=== PATIENT | female | born 1985 | race Caucasian/White ===

== ENCOUNTER → 2017-11-11 | Outpatient (CLI) | payer BC ==
[~2017-11-11] MED LIST: CLR10 PO; DOCO200C2; PRENCAP38 PO
== END | disposition home or self-care (01) ==
LOC: C.LABSPEC 17:41
PROVIDERS: ATTEND Obstetrics & Gynecology
DX: Z34.01 Encounter for supervision of normal first pregnancy, first trimester (principal)

== ENCOUNTER → 2017-11-18 | Outpatient (CLI) | payer OTHER ==
[2017-11-18 16:36] LABS: BASO % 0.4 %; BASO ABS # 0.04 K/uL (0-0.2); EOS ABS # 0.11 K/uL (0-0.5); HEMATOCRIT 36.1 % (37-47); HEMOGLOBIN 12.4 g/dL (12.0-16.0); IG# 0.04 K/uL (0.00-0.02); LYMPH ABS # 2.29 K/uL (1.2-3.4); MEAN CELL VOLUME 95.3 fL (80-100); MEAN CORPUSCULAR HEMOGLOBIN 32.7 pg (25-34); MEAN CORPUSCULAR HGB CONC 34.3 g/dl (32-36); MEAN PLATELET VOLUME 9.5 fL (7.4-10.4); MONO % 7.7 %; MONO ABS # 0.84 K/uL (0.11-0.59); NEUT % 69.5 %; NEUT ABS # 7.61 K/uL (1.4-6.5); PLATELET COUNT 303 K/uL (130-400); RED CELL DISTRIBUTION WIDTH SD 41.2 fL (36.4-46.3); WHITE BLOOD COUNT 10.93 K/uL (4.8-10.8)
== END | disposition home or self-care (01) ==
LOC: C.LAB1850 16:02
PROVIDERS: ATTEND Obstetrics & Gynecology
DX: Z34.01 Encounter for supervision of normal first pregnancy, first trimester (principal)

== ENCOUNTER → 2018-01-13 | Outpatient (CLI) | payer OTHER | END | disposition home or self-care (01) | LOC: C.LAB1850 16:13 | PROVIDERS: ATTEND Obstetrics & Gynecology | DX: Z34.02 Encounter for supervision of normal first pregnancy, second trimester (principal) ==

== ENCOUNTER → 2018-02-03 | Outpatient (CLI) | payer OTHER | END | disposition home or self-care (01) | LOC: C.LAB1850 09:22 | PROVIDERS: ATTEND Obstetrics & Gynecology | DX: O28.1 Abnormal biochemical finding on antenatal screening of mother (principal) ==

== ENCOUNTER → 2018-04-03 | Outpatient (CLI) | payer OTHER ==
[2018-04-03 12:39] LABS: HEMATOCRIT 37.7 % (37-47); HEMOGLOBIN 12.7 g/dL (12.0-16.0)
== END | disposition home or self-care (01) ==
LOC: C.LAB1850 10:44
PROVIDERS: ATTEND Obstetrics & Gynecology
DX: Z34.03 Encounter for supervision of normal first pregnancy, third trimester (principal)

== ENCOUNTER 2018-06-25 06:37 | Outpatient (CLI) | payer OTHER ==
[~2018-06-25] VITALS: Ht 162.6 cm; Wt 87.5 kg
[2018-06-25] MEDS ORDERED: PRENCAP38 PO (07:53)
[2018-06-25] MEDS ORDERED: CLR10 PO (07:55)
[2018-06-25] MEDS ORDERED: DOCO200C2 (07:55)
[2018-06-25 10:28] VITALS: Ht 162.6 cm; Wt 87.5 kg
== END 2018-06-25 10:39 ==
LOC: C.LD 06:37 → C.OPB 06:37
PROVIDERS: ATTEND Obstetrics & Gynecology
DX: O62.9 Abnormality of forces of labor, unspecified (principal); Z3A.00 Weeks of gestation of pregnancy not specified

== ENCOUNTER 2018-06-25 13:25 | Inpatient (IN) | payer OTHER ==
[~2018-06-25] VITALS: Ht 162.6 cm; Wt 87.5 kg
[2018-06-25] MEDS ORDERED: LACTATED RINGER'S 1000ML 1,000 ML IV PRN (13:36)
[2018-06-25] MEDS ORDERED: PENICILLIN G POTASSIUM IV 6 MU in DEXTROSE 5% 250ML 250 ML IV ONE (14:00)
[2018-06-25 14:01] VITALS: Ht 162.6 cm; Wt 87.5 kg
[2018-06-25] MEDS: LACTATED RINGER'S 1000ML 1,000 ML IV SCH ×2 (14:04→19:29)
[2018-06-25 14:10] LABS: HEMATOCRIT 35.9 % (37-47); HEMOGLOBIN 12.1 g/dL (12.0-16.0); MEAN CELL VOLUME 92.1 fL (80-100); MEAN CORPUSCULAR HGB CONC 33.7 g/dl (32-36); MEAN PLATELET VOLUME 10.9 fL (7.4-10.4); PLATELET COUNT 252 K/uL (130-400); RED CELL DISTRIBUTION WIDTH CV 13.5 % (11.5-14.5); RED CELL DISTRIBUTION WIDTH SD 44.9 fL (36.4-46.3); WHITE BLOOD COUNT 15.92 K/uL (4.8-10.8)
[2018-06-25] MEDS ORDERED: BUPIVACAINE 0.25% 30 ML VIAL ONE (14:14)
[2018-06-25] MEDS ORDERED: EpHEDrine SULFATE INJ 50 MG/ML AMP ONE (14:14)
[2018-06-25] MEDS ORDERED: FENTANYL CITRATE INJ 50 MCG/1 ML 2 ML VIAL ONE (14:15)
[2018-06-25] MEDS ORDERED: FENTANYL 2MCG/ML ROPIV 1.25MG/ML 100ML BAG ONE (14:16)
[2018-06-25] MEDS ORDERED: NALOXONE HCL INJ 1 MG in SODIUM CHLORIDE 0.9% 1000ML 1,000 ML IV PRN (14:50)
[2018-06-25] MEDS ORDERED: LACTATED RINGER'S 1000ML 500 ML IV PRN ×2 (14:50→15:56)
[2018-06-25] MEDS ORDERED: DiphenhydrAMINE HCL 50 MG/ML VIAL IV PRN (15:00)
[2018-06-25] MEDS ORDERED: EpHEDrine SULFATE INJ 50 MG/ML AMP IV PRN (15:00)
[2018-06-25] MEDS ORDERED: ONDANSETRON INJ 2 MG/ML 2 ML VIAL IV PRN (15:00)
[2018-06-25] MEDS ORDERED: NALOXONE HCL INJ 0.4 MG/1 ML VIAL/CARP IV PRN (15:00)
[2018-06-25] MEDS ORDERED: NALBUPHINE HCL INJ 10 MG/ML 1ML AMP IV PRN (15:00)
[2018-06-25] MEDS ORDERED: OXYTOCIN 30 UNITS/500ML NSS IV PRN ×2 (16:00→23:30)
[2018-06-25] MEDS: PENICILLIN G POTASSIUM IV 3 MU in DEXTROSE 5% 100ML 100 ML IV PRN ×2 (17:35→21:20)
[2018-06-25] MEDS: FENTANYL 2MCG/ML ROPIV 1.25MG/ML 100ML BAG EPI PRN ×2 (19:03→21:24)
[2018-06-25] MEDS ORDERED: CARBOPROST TROMETHAMINE 250 MCG/ML AMP ONE (23:02)
[2018-06-25] MEDS ORDERED: SUPERCREAM 0.870 % 15GM JAR EXT PRN (23:30)
[2018-06-25] MEDS ORDERED: CARBOPROST TROMETHAMINE 250 MCG/ML AMP IM ONE (23:30)
[2018-06-25] MEDS ORDERED: BENZOCAINE 20% AER SPR 82.5 GM CAN EXT PRN (23:30)
[2018-06-25] MEDS ORDERED: OXYCODONE/ACETAMINOPHEN 5-325 TAB PO PRN (23:30)
[2018-06-25] MEDS ORDERED: HYDROCORTISONE ACETATE 25 MG SUPP PR PRN (23:30)
[2018-06-25] MEDS ORDERED: LANOLIN OINT EXT PRN (23:30)
[2018-06-25] MEDS ORDERED: DIPHTHERIA/TETANUS/PERTUSSIS 0.5 ML SYR/VIAL IM. ONE (23:30)
[2018-06-25] MEDS ORDERED: ACETAMINOPHEN 325 MG TAB PO PRN (23:30)
[2018-06-25] MEDS ORDERED: MISOPROSTOL 200 MCG TAB PR STA (23:31)
[2018-06-26] VITALS (8 sets, daily range): BP systolic 103–145; BP diastolic 66–79; PULSE 56–97; TEMP 36.6–36.7; O2SAT 97
[2018-06-26] MEDS: IBUPROFEN 600 MG TAB PO PRN ×5 (00:38→19:55)
--- NOTE | 2018-06-26 01:19 | Anesthesia Procedure Note ---
Anesthesia Epidural Removal Nt Date & Time Jun 26, 2018 at 01:19 Vital Signs Pain Intensity: 3.0 Notes Mental Status: alert / awake / arousable, participated in evaluation Nausea / Vomiting: adequately controlled Pain: adequately controlled Airway Patency, RR, SpO2: stable & adequate BP & HR: stable & adequate Hydration State: stable & adequate Neuraxial Anesthesia: was administered Anesthetic Complications: no major complications apparent, pt satisfied with anesthetic care Epidural: removed without complications, with tip intact
--- NOTE | 2018-06-26 02:30 | DELIVERY SUMMARY ---
DATE OF OPERATION: 06/25/2018 PREOPERATIVE DIAGNOSES: 1. Intrauterine at 40 and 0/7 weeks. 2. Active labor. 3. GBS positive. POSTOPERATIVE DIAGNOSES: 1. Intrauterine at 40 and 0/7 weeks. 2. Active labor. 3. GBS positive. 4. Meconium. PROCEDURES: 1. Epidural anesthesia. 2. Penicillin treatment for GBS. 3. Amniotomy for moderate green meconium. 4. Normal spontaneous vaginal delivery. 5. First degree vaginal laceration with repair. SURGEON: Mis Wilson MD ANESTHESIA: Epidural. ESTIMATED BLOOD LOSS: 500 mL. DESCRIPTION OF THE PROCEDURE: Melva had presented earlier in the day with irregular contractions. She was 2+ cm dilated, 50% effaced and was sent home. She presented several hours later and was 4-5 cm dilated, 90% effaced. She was admitted. She underwent an epidural anesthesia. She received penicillin for group B strep prophylaxis. She subsequently underwent an amniotomy for moderate green meconium. She then progressed with the aid of some Pitocin augmentation to complete complete and +2. Patient pushed for approximately an hour to deliver a viable male in RUBENS presentation. There was nuchal arm. There was a loop of cord wrapped around this nuchal arm, which was reduced. There was no nuchal cord. The baby rotated to direct OP and then was delivered without difficulty. The was vigorous. The nose and mouth were bulb suctioned and the was placed on the maternal abdomen for drying and attention. The cord was clamped and cut at 1 minute of life. Cord blood and segment were obtained. Placenta was delivered spontaneously intact with a 3-vessel cord. The patient did have some bleeding secondary to mild uterine atony, which was treated with dilute Pitocin, fundal massage, IM Hemabate and 600 mcg of Cytotec per rectum. The uterus was explored x2 with no retained products but clot in the lower uterine segment that was removed. The patient's uterus finally firmed up and estimated blood loss was approximately 500 mL. Small vaginal lacerations was identified and repaired with 3-0 Vicryl. Apgars were 1 minute of 8 and the 5 minute one is pending. Mother and baby doing well at the end of the delivery. I attest to the content of the Intraoperative Record and any orders documented therein. Any exception s are noted below.
[2018-06-26 06:49] LABS: HEMATOCRIT 29.4 % (37-47); HEMOGLOBIN 9.8 g/dL (12.0-16.0)
--- NOTE | 2018-06-26 06:49 | Progress Note ---
Subjective Jun 26, 2018. Subjective conversation w/ patient, physical exam, lab review Ambulation: ambulating normally Voiding: no voiding problems Passing Gas: Yes Diet Tolerance: Regular Diet Lochia: Small Feeding Type: Bottle Feeding Pain: controlled Objective Vital Signs Date Time Temp Pulse Resp B/P (MAP) Pulse Ox O2 Delivery O2 Flow Rate FiO2 06/26/18 04:50 120/77 (91) 06/26/18 03:05 36.7 56 18 145/78 (100) Room Air 06/26/18 02:15 Room Air 06/26/18 02:15 36.7 73 18 126/79 (95) Room Air Physical Exam General Appearance: WELL-APPEARING, WD/WN, NO APPARENT DISTRESS Abdomen: non tender, soft Fundus: Firm, Non-Tender, Relation to Umbilicus (at u) Extremities: non-tender, normal inspection, no pedal edema Laboratory Results Last 24 Hours Test 06/25/18 13:56 06/26/18 06:38 White Blood Count 15.92 K/uL Red Blood Count 3.90 M/uL Hemoglobin 12.1 g/dL Hematocrit 35.9 % Mean Corpuscular Volume 92.1 fL Mean Corpuscular Hemoglobin 31.0 pg Mean Corpuscular Hemoglobin Concent 33.7 g/dl RDW Standard Deviation 44.9 fL RDW Coefficient of Variation 13.5 % Platelet Count 252 K/uL Mean Platelet Volume 10.9 fL Assessment and Plan Post- Day#: 1 Continue Routine Care: Doing well. Routine care.
[2018-06-26] MEDS: DOCUSATE SODIUM 100 MG CAP PO SCH ×2 (09:16→19:53)
[2018-06-26] MEDS: PRENATAL VITAMIN TAB PO SCH (09:17)
--- NOTE | 2018-06-26 13:20 | Discharge Instructions ---
Discharge Instructions Date of Service Jun 26, 2018. Admission Reason for Admission: Check Ruptured Membranes Discharge Discharge Diagnosis / Problem: Vaginal Delivery Discharge Goals Goal(s): Routine recovery after delivery Medications Continue Dispensed Medications: supercream, dermaplast, tucks Activity Recommendations Activity Limitations: per Instructions/Follow-up section . Instructions / Follow-Up Instructions / Follow-Up ACTIVITY RECOMMENDATIONS: * Gradual return to full activity over the next 2-3 weeks. * No lifting - nothing heavier than baby over the next 2-3 weeks. * Do not engage in vigorous exercise, sexual activity or sports until cleared by your physician. * Do not drive or operate any motorized equipment until cleared by your physician. * You may shower/bathe daily. MEDICATIONS: For discomfort or pain, you may use Acetaminophen (Tylenol), Ibuprofen (Advil), or Naproxen (Aleve) following the package directions. For constipation you may use Colace following the package directions. BREAST CARE: If you are not breast feeding: * Wear a supportive bra 24 hours a day for one to two weeks. * Avoid stimulating your breasts and nipples as much as possible during the first few weeks after delivery. * When taking a shower, have the warm water hit your back, not breasts. * When your breasts feel full, apply ice packs. Usually three to four times a day helps ease the discomfort. * Take a mild pain medication (Tylenol / Motrin) when you are uncomfortable. If breast feeding: * Use breast milk to lubricate nipples. Lansinoh cream may be used for sore nipples. You do not need to remove cream prior to breast feeding. If using a different brand of cream, check the label for directions regarding removal of cream prior to nursing. * Wear a supportive bra. * If having problems with breasts or breast feeding, call a erp implementation consultant or your health care provider. EPISIOTOMY CARE: After delivery, if you have an episiotomy (stitches), the following steps will ease discomfort and aid healing. * For the first 24 hours after delivery, place ice packs next to your episiotomy to help reduce swelling. * After the first 24 hour-period, sitz baths, either portable or in the tub, are suggested. A shower with a shower arm sprayed over the episiotomy may be comforting. * Marlene care should be done after each voiding and bowel movement. Squirt warm water from a plastic bottle over the perineum (region of the body between the anus and urinary opening) and pat dry. * Use Dermoplast to ease discomfort. Shake container. [place] directly over the episiotomy. Place a Tucks on a clean sanitary pad next to your episiotomy. SPECIAL CARE INSTRUCTIONS: When you are discharged from the hospital, it is important for you to follow the instructions listed below: * During the first week at home, you should be able to care for yourself and your baby. In addition, the usual light household activities are encouraged. * Limit your activities to the way you feel. Do not try to clean the house or move furniture. Be sensible. * If you actively engage in sports and have done so up until the time of your delivery, you may resume these activities as soon as you feel able. This may take up to one month or even longer. Use good judgment. * Continue to take your vitamins for at least six weeks after the of your baby. * Your diet need not be limited unless you were on a special diet before your delivery. Breast-feeding mothers need around 2500 calories per day and at least 64-80 ounces of fluid per day (8 to 10 glasses). * You should eat foods from the four major food groups. Crash diets or fad diets are to be avoided. Eating lean meats, fresh fruits and vegetables, low-fat dairy products, high fiber foods and a regular exercise program, will help you get back to your pre- weight without putting your health at risk. * Constipation is sometimes a problem after delivery. Take a mild laxative as needed. If breast feeding, Milk of Magnesia is acceptable to use. You may use a suppository or Fleets enema if no episiotomy. * A daily shower or tub bath is suggested. Be sure to thoroughly and gently dry the perineum. * A bloody vaginal discharge will usually continue until around four weeks post . A small amount of bleeding may continue for as long as six weeks. Vaginal discharge changes from the bright red bleeding after delivery to pink then brownish and finally yellowish-pink before becoming white and disappearing. * Bleeding may increase with activity. Your first period may come in 4-8 weeks. If you are breast feeding, your period may be delayed even longer. * [place] (sex) can begin whenever both you and your partner feel comfortable and do not have any form of genital infection. It is recommended that you wait at least six weeks for internal and external healing to occur. If you have questions, please talk to your health care practitioner. A condom should be used to prevent infection and . * Foreplay, gentle intercourse and lubrication is very important the first several times to prevent pain. A water-based lubricant such as K-Y jelly or Astroglide may be used. * If you have RH negative blood and your baby is RH positive, you will receive RHOGAM by injection prior to discharge. The nurse will give you a card to keep with you that has the date and place that you received RHOGAM after delivery. * During your care, you had a Rubella screen done to check for the presence of rubella antibodies in your blood. If your test was negative, you will receive a Rubella vaccine prior to discharge. This vaccine may cause a fever, soreness at the injection site and flu-like symptoms. If these symptoms persist, notify your health care practitioner. is not advised for one month after a Rubella vaccine. * Verbalizes understanding of car seat law as reviewed with patient nursing. * Car Seat hand-out given and reviewed with patient by nursing. * Shaken baby information reviewed with patient by nursing. Call you doctor if: * Heavy bleeding (saturating several pads an hour) or passing clots the size of your fist. * A fever >101 degrees F (38.3 degrees C) on two occasions four hours apart and /or chills. * Unusual pain in the pelvic or vaginal areas. * "Baby Blues" lasting longer than two weeks. If you have any questions or concerns, call your health care practitioner at . FOLLOW UP VISIT: * Please call the office at to schedule a 6 week examination. It is important you keep this appointment. It is important for you to make arrangements for either yearly or twice yearly check-ups thereafter. Current Hospital Diet Patient's current hospital diet: Regular OB Diet Discharge Diet Recommended Diet: Regular OB Diet Pending Studies Studies pending at discharge: no Medical Emergencies . Who to Call and When: Medical Emergencies: If at any time you feel your situation is an emergency, please call 911 immediately. . Non-Emergent Contact Non-Emergency issues call your: Project Scientist Call Non-Emergent contact if: temperature is above 100.5 . . "Provider Documentation" section prepared by Christian Devine. .
[2018-06-27] MEDS: IBUPROFEN 600 MG TAB PO PRN ×3 (04:20→14:07)
--- NOTE | 2018-06-27 07:20 | Progress Note ---
Subjective Jun 27, 2018. Subjective conversation w/ patient, physical exam Ambulation: ambulating normally Voiding: no voiding problems Feeding Type: Bottle Feeding Objective Vital Signs Date Time Temp Pulse Resp B/P (MAP) Pulse Ox O2 Delivery O2 Flow Rate FiO2 06/26/18 23:30 Room Air 06/26/18 23:30 36.7 81 18 103/67 (79) 06/26/18 20:00 36.6 87 18 126/79 (95) 97 Room Air 06/26/18 15:55 97 Room Air 06/26/18 15:55 36.7 82 18 111/70 (84) 97 Room Air 06/26/18 12:45 36.7 95 16 110/66 (81) 97 Room Air 06/26/18 07:45 36.6 97 16 107/72 (84) 97 Room Air Physical Exam General Appearance: WELL-APPEARING, NO APPARENT DISTRESS Fundus: Firm, Non-Tender Extremities: no calf tenderness Assessment and Plan Post- Day#: 2 Continue Routine Care: - pt doing well - desires d/c - instructions given - f/u in 6 weeks
[2018-06-27 07:35] VITALS: BP 111/76; PULSE 86; TEMP 36.7
[2018-06-27] MEDS: PRENATAL VITAMIN TAB PO SCH (07:54)
[2018-06-27] MEDS: DOCUSATE SODIUM 100 MG CAP PO SCH (07:54)
[2018-06-27 15:40] VITALS: BP_DIAS 76; PULSE 86; TEMP 36.7
== END 2018-06-27 15:40 | disposition home or self-care (01) | DRG 775 ==
LOC: C.OPB 13:25 → C.LD 13:27 → C.OPB 13:37 → C.OBG 06-26 02:22
PROVIDERS: ADMIT Obstetrics & Gynecology; ATTEND Obstetrics & Gynecology
PROC: 0HQ9XZZ Repair Perineum Skin, External Approach (ICD-10-PCS; principal; 2018-06-25)
PROC: 10E0XZZ Delivery of Products of Conception, External Approach (ICD-10-PCS; principal; 2018-06-25)
DX: O77.0 Labor and delivery complicated by meconium in amniotic fluid (principal); O70.0 First degree perineal laceration during delivery; O99.824 Streptococcus B carrier state complicating childbirth; O69.82X0 Labor and delivery complicated by other cord entanglement, without compression, not applicable or unspecified; Z3A.40 40 weeks gestation of pregnancy; Z37.0 Single live birth

== ENCOUNTER 2020-09-30 20:07 | Inpatient (IN) ==
--- NOTE | 2020-09-30 20:49 | History & Physical Report ---
Date of Service September 30, 2020 Assessment & Plan (1) Unfavorable cervix in term : (2) Elective induction of labor planned: will monitor x 1 hr and then plan to recheck bp prior to d/c. pt without sx and of note is her bp earlier today in office. urine prot neg. fhts categ 1. s/sx labor reviewed. expectations with ripening balloon reviewed. History of Present Illness Chief Complaint: unfavorable cx at term. Primary Care Provider: NO PCP 35yo at 39+wks for elective induction at term with unfavorable cervix. Patient notes she was checked in office today and was 1-2cm and thick cx. She notes they told her fetus was cephalic. No rom, vb. +FM. No ctx. PNC c/b 1. AMA 2. GBS positive PNL RH pos, RI, Gbs pos OBH: x 1 GYNH: neg paps, no stds All Active Problems Encounter for screening laboratory testing for COVID-19 virus Group beta Strep positive Supervision of elderly multigravida All Active Problems Encounter for screening laboratory testing for COVID-19 virus Group beta Strep positive Supervision of elderly multigravida Allergies Allergy/AdvReac Type Severity Reaction Status Date / Time No Known Allergies Allergy Verified 09/30/20 14:11 Home Medications Medication Instructions Recorded Confirmed Type prenat.vits,yung,shs-[id number]-ojymd 1 tab PO DAILY 02/20/20 09/30/20 History esomeprazole magnesium PO 02/27/20 09/30/20 History loratadine PO 02/27/20 09/30/20 History Patient History Medical History (Updated 09/30/20 @ 20:55 by Denia Blanco MD, FACOG) Gastric reflux History of arthritis History of migraine History of varicella Surgical History H/O oral surgery Family History Grandmother (Maternal) Breast cancer Mother Thyroid disease Social History (Reviewed 09/30/20 @ 20:21 by IvyJT Jackson Smoking Status: Former smoker Hx Alcohol Use: No Hx Substance Use: No Preferred Language: Bruneian marital status: marital status details: Stanton Saldana (28) [phone] Current Living Situation: Spouse Current Living Situation Comment: lives with spouse and son, 1 dog current occupational status: other current occupation: homemaker Feels Safe at Home: Yes Safety Concerns: Feels Safe At This Time Review of Systems no fever no nausea no abnormal vaginal bleeding no headache(s) Physical Exam Constitutional: WD/WN, vitals as above Gastrointestinal (Abdomen): soft gravid nt Musculoskeletal: +1 pedal edema Neurologic: grossly normal Psychiatric: A+Ox3, euthymic affect Genitourinary: Manual OB Exam: + cervical dilation (visually <1cm) OB Exam Monitor Tracing: + external FHT monitor used (135 mod variability, reactive ), + external uterine monitor used (q3-5), + category I and + normal FHT variability Procedure: spec placed, cx grasped on anterior lip with ring forcep, grossman placed through os, balloon inflated with 40cc sterile water, spec removed, forcep removed, grossman taped to thigh on tension. pt crista well. Results & Data ([facility]) Vital Signs (Past 12 Hours) Vital Signs Temp Pulse Resp BP 09/30/20 20:22 98.2 F 18 09/30/20 20:15 81 159/89 H 09/30/20 20:14 86 162/83 H 09/30/20 20:12 98.2 F 80 18 155/83 H Coding Level of Care Code None Diagnoses Unfavorable cervix in term O34.40 Elective induction of labor planned CPT Codes Misx Procedure Codes - 21312 Placement of cervical dilator: 66983 Placement of cervical dilator ([id number]) Misx Procedure Codes - 36626 NST: 05798 NST ([id number])
[2020-09-30] MEDS ORDERED: OXYTOCIN 30 UNITS/500 ML BAG IV PRN ×2 (22:42→22:43)
[2020-09-30] MEDS ORDERED: PENICILLIN G POTASSIUM 6 MU in DEXTROSE 5% 250 ML IV STA (22:45)
--- NOTE | 2020-09-30 22:46 | Obstetrical Progress Note ---
Date of Service September 30, 2020 Assessment & Plan (1) Gestational hypertension: (2) Supervision of elderly multigravida: pt aware of her elevated sbp now after sitting in chair for >10min. does not have values by 4-6hrs to truly meet dx but concern expressed. offered to initiate induction now by admitting her and adding pitocin, vs. going home, call in interim with any concerning sx which were explained and return in am. after discussion as couple, they opt to stay. plan admit, iv, labs and pitocin. fhts categ 1. efw 7-8#. cx exam per office visit today. Subjective pt denies winters, visual change, ruq pain, n/v. no labor s/sx Review of Systems Review of Systems: per hpi Physical Exam Constitutional: WD/WN, vitals as above Psychiatric: A+Ox3, euthymic affect Genitourinary: nst reactive Results & Data ([place]) Vital Signs (Past 12 Hours) Vital Signs Temp Pulse Resp BP 09/30/20 22:17 81 152/77 H 09/30/20 22:03 75 158/77 H 09/30/20 20:22 98.2 F 18 09/30/20 20:15 81 159/89 H 09/30/20 20:14 86 162/83 H 09/30/20 20:12 98.2 F 80 18 155/83 H PG Care Time/CCT Total # of Minutes Spent Total Time Spent with Patient: Total time spent is greater than 50% in coordination of care (as documented) at patient's floor/unit and/or counseling patient: Coding Level of Care Code None Diagnoses Gestational hypertension O13.9 Supervision of elderly multigravida O09.529
[2020-09-30 23:00] LABS: Hematocrit (blood only) 35.1 % (37-47); Hemoglobin 11.3 g/dL (12.0-16.0); Mean Corpuscular Hemoglobin 29.6 pg (25-34); Mean Corpuscular Hgb Conc 32.2 g/dL (32-36); Mean Corpuscular Volume 91.9 fL (80-100); Mean Platelet Volume 10.5 fL (7.4-10.4); Platelet Count 294 K/uL (130-400); RDW Coefficient of Variation 13.6 % (11.5-14.5); RDW Standard Deviation 45.4 fL (36.4-46.3); Red Blood Count 3.82 M/uL (4.2-5.4); White Blood Count 12.23 K/uL (4.8-10.8)
[2020-09-30] MEDS: LACTATED RINGER'S 1,000 ML IV PRN (23:09)
[2020-09-30 23:25] LABS: BUN Creatinine Ratio 7.8 (10-20); Calcium 8.8 mg/dl (8.5-10.1); Est GFR (Non-African American) 115.6; Potassium 3.2 mmol/L (3.5-5.1)
[2020-09-30 23:28] LABS: Albumin Globulin Ratio 0.8 (0.9-2); Bilirubin,Total 0.7 mg/dl (0.2-1)
[2020-10-01] MEDS: PENICILLIN G POTASSIUM 3 MU in DEXTROSE 5% 100 ML IV PRN ×3 (03:15→11:04)
[2020-10-01] MEDS ORDERED: BUPIVACAINE 0.25% 30 ML VIAL ONE ×2 (03:36→12:28)
[2020-10-01] MEDS ORDERED: ePHEDrine sulfate 50 MG/ML AMP ONE (03:36)
[2020-10-01] MEDS ORDERED: fentaNYL citrate 100 MCG/2 ML VIAL ONE ×2 (03:36→12:29)
[2020-10-01] MEDS ORDERED: fentaNYL 2MCG/ML ROPIVACAINE 1.25MG/ML 100 ML BAG EPI ONE (03:36)
[2020-10-01] MEDS ORDERED: SODIUM CHLORIDE 0.9% INJ 10 ML VIAL ONE (03:36)
[2020-10-01] MEDS: LACTATED RINGER'S 1,000 ML IV PRN ×2 (03:55→09:14)
[2020-10-01] MEDS ORDERED: PROMETHAZINE HCL 25 MG in SODIUM CHLORIDE 0.9% 50 ML IV PRN (04:32)
[2020-10-01] MEDS ORDERED: diphenhydrAMINE 50 MG/ML VIAL IV PRN (04:32)
[2020-10-01] MEDS ORDERED: ONDANSETRON INJ 2 MG/ML 2 ML VIAL IV PRN (04:32)
[2020-10-01] MEDS ORDERED: fentaNYL 2MCG/ML ROPIVACAINE 1.25MG/ML 100 ML BAG EPI PRN (04:32)
[2020-10-01] MEDS ORDERED: NALOXONE HCL 1 MG in SODIUM CHLORIDE 0.9% 1000ML 1,000 ML IV PRN (04:32)
[2020-10-01] MEDS ORDERED: ePHEDrine sulfate 50 MG/ML AMP IV PRN (04:32)
[2020-10-01] MEDS ORDERED: NALOXONE HCL 0.4 MG/1 ML VIAL/CARP IV PRN (04:32)
--- NOTE | 2020-10-01 04:32 | Anesthesiology Consultation ---
Date of Service October 01, 2020 Assessment & Plan ASA ASA2 Proposed Anesthesia Anesthesia Type: Labor Epidural Risk / Benefits Reviewed With: PT / POA / Parent / Guardian, Accepts Plan and Informed Consent Obtained History Height/Weight Height: 5 ft 4 in Weight: 85.729 kg Allergies Allergy/AdvReac Type Severity Reaction Status Date / Time No Known Allergies Allergy Verified 09/30/20 14:11 Medications Home Medications Medication Instructions Recorded Confirmed Last Taken prenat.vits,yung,bzj-grjr-jxcma 1 tab PO DAILY 02/20/20 09/30/20 09/30/20 loratadine 1 tab PO DAILY 02/27/20 09/30/20 09/30/20 Active Medications Generic Name Dose Route Start Last Admin Trade Name Freq PRN Reason Stop Dose Admin Lactated Ringer's 1,000 mls @ 125 mls/hr 09/30/20 22:42 10/01/20 04:27 Lr IV 10/02/20 22:41 125 mls/hr .Q8H PRN Administration L&D Protocol Protocol Penicillin G Potassium 3 mu/ 106 mls @ 100 mls/hr 09/30/20 22:42 10/01/20 03:15 Dextrose IV 10/10/20 22:41 100 mls/hr Q4H PRN Administration Give until delivery Oxytocin 30 units in 500 mls @ 9 mls/hr 09/30/20 22:43 10/01/20 02:30 Pitocin IV 10/02/20 22:42 0.54 units/hr .Q24H PRN 9 mls/hr Labor Induction/Augmentation Titration Protocol 0.54 UNITS/HR Past Medical History Medical History Gastric reflux History of arthritis History of migraine History of varicella Exercise / Class Metabolic Activity II 4-5 Yardwork/Stairs/Walk up hill Past Family History Family History Grandmother (Maternal) Breast cancer Mother Thyroid disease Past Surgical History Surgical History H/O oral surgery Past Anesthesia History No Hx of Anesthesia Complications and No Family Hx of Anesthesia Complications mom is allergic to anesthesia. she does not know what happens, only that mom has a card History of PONV No Hx of PONV and No Hx of Motion Sickness Social History Smoking Status: Former smoker Hx Alcohol Use: No Hx Substance Use: No Review of Systems denies fever/cough/ colds/ chest pain/ SOB/ DAYSI denies DAYSI Physical Exam Vital Signs Last Vital Signs Temp 36.7 C 10/01/20 03:30 Pulse 93 H 10/01/20 04:29 Resp 18 10/01/20 04:02 BP 145/86 H 10/01/20 04:29 Pulse Ox 99 10/01/20 04:27 ENMT Mouth: no TMJ abnormality and no dentition abnormality Thyromental Distance: > or= 3.5 Finger Breadths Mallampati Class: II Neck neck extension not limited Respiratory normal respiratory effort; no respiratory distress Auscultation: lungs clear to auscultation bilaterally Cardiovascular Rate/Rhythm: regular rate and regular rhythm Neurologic moves all extremities Psychiatric Orientation: alert and oriented x 3 Testing Laboratory Results 09/30/20 22:47 09/30/20 22:47
[2020-10-01] MEDS ORDERED: ACETAMINOPHEN 325 MG TAB PO ONE (07:22)
--- NOTE | 2020-10-01 08:51 | Labor Progress Brief Note ---
Date of Service October 01, 2020 Subjective Comfortable with epidural. Rupture of membranes for clear fluid, spontaneous. Cervix 5-6/70/-1 FHT Cat 1, Dickens Q 2-4 min Continue labor, anticipate . Assessment & Plan Admission and Anticipated Discharge Date Admission Date: September 30, 2020 Results & Data ([facility]) Vital Signs (Past 12 Hours) Vital Signs Temp Pulse Resp BP Pulse Ox 10/01/20 08:42 89 98 10/01/20 08:40 72 170/84 H 10/01/20 08:37 87 97 10/01/20 08:32 87 97 10/01/20 08:27 89 95 10/01/20 08:24 87 145/68 H 10/01/20 08:22 92 H 97 10/01/20 08:17 87 96 10/01/20 08:14 86 94 10/01/20 08:12 86 96 10/01/20 08:08 83 155/94 H 10/01/20 08:07 91 H 96 10/01/20 08:02 84 97 10/01/20 07:57 82 96 10/01/20 07:54 86 148/83 H 10/01/20 07:52 93 H 99 10/01/20 07:47 90 96 10/01/20 07:42 93 H 98 10/01/20 07:39 89 150/88 H 93 10/01/20 07:37 87 95 10/01/20 07:32 87 100 10/01/20 07:27 86 98 10/01/20 07:24 81 141/84 H 10/01/20 07:22 81 98 10/01/20 07:17 93 H 96 10/01/20 07:15 36.8 C 20 10/01/20 07:12 75 99 10/01/20 07:08 90 151/90 H 10/01/20 07:07 88 96 10/01/20 07:02 86 97 10/01/20 07:00 86 18 92 10/01/20 06:57 82 97 10/01/20 06:54 82 146/91 H 10/01/20 06:52 76 98 10/01/20 06:47 100 H 96 10/01/20 06:42 97 H 98 10/01/20 06:39 89 137/83 10/01/20 06:37 96 H 97 11/18/20 06:32 98 H 97 18/20 06:30 18 18/20 06:28 103 H 92 18/20 06:27 100 H 96 18/20 06:23 91 H 145/79 H 18/20 06:22 98 H 98 10/01/20 06:17 98 H 96 18/20 06:12 87 96 18/20 06:09 89 134/77 18/20 06:07 81 97 18/20 06:02 86 97 18/20 06:00 18 10/01/20 05:57 93 H 94 18/20 05:53 90 141/82 H 18/20 05:52 85 96 18/20 05:47 84 96 18/20 05:42 84 96 18/20 05:39 83 136/80 18/20 05:37 85 96 18/20 05:32 85 96 20 05:30 18 10/01/20 05:27 84 96 18/20 05:23 82 145/83 H 18/20 05:22 83 96 18/20 05:17 81 96 18/20 05:12 81 96 18/20 05:08 86 141/81 H 20 05:07 90 97 10/01/20 05:02 84 97 10/01/20 05:00 18 10/01/20 04:57 81 97 18/20 04:54 77 152/80 H 18/20 04:52 78 97 18/20 04:47 90 99 18/20 04:42 90 99 18/20 04:37 88 156/76 H 99 18/20 04:36 91 H 169/89 H 18/20 04:33 90 154/90 H 18/20 04:32 81 99 18/20 04:31 86 149/84 H 18/20 04:30 18 18/20 04:29 93 H 145/86 H 18/20 04:27 88 143/85 H 99 18/20 04:25 88 148/89 H 18/20 04:23 96 H 154/93 H 10/01/20 04:22 91 H 100 10/01/20 04:21 89 149/89 H 10/01/20 04:19 80 158/99 H 10/01/20 04:17 79 149/90 H 100 10/01/20 04:15 81 138/82 10/01/20 04:12 89 99 10/01/20 04:07 93 H 99 10/01/20 04:06 95 H 92 10/01/20 04:02 80 18 99 10/01/20 03:57 83 100 10/01/20 03:52 80 99 10/01/20 03:47 79 99 10/01/20 03:45 77 145/86 H 10/01/20 03:42 81 99 10/01/20 03:37 77 99 10/01/20 03:32 72 100 10/01/20 03:30 36.7 C 20 10/01/20 03:27 77 99 10/01/20 03:00 16 10/01/20 02:38 81 154/82 H 10/01/20 02:30 18 10/01/20 01:58 18 10/01/20 01:37 76 143/73 H 10/01/20 01:30 18 10/01/20 01:00 18 10/01/20 00:37 80 136/76 10/01/20 00:30 36.8 C 18 10/01/20 00:00 18 09/30/20 23:38 81 145/78 H 09/30/20 22:17 81 152/77 H 09/30/20 22:03 75 158/77 H Coding Level of Care Code None
[2020-10-01] MEDS ORDERED: Nursing to Pharmacy Communication SCH (11:45)
[2020-10-01] MEDS ORDERED: NIFEdipine 10 MG CAP PO STA ×2 (13:06→13:48)
--- NOTE | 2020-10-01 13:07 | Labor Progress Brief Note ---
Date of Service October 01, 2020 Subjective Complete dilation, FHT with variable decels with ctx. [place] Q 2 BPs elevated, will give PO nifedipine. Assessment & Plan Admission and Anticipated Discharge Date Admission Date: September 30, 2020 Results & Data ([facility]) Vital Signs (Past 12 Hours) Vital Signs Temp Pulse Resp BP Pulse Ox 10/01/20 12:59 94 H 96 10/01/20 12:54 83 174/94 H 10/01/20 12:46 88 176/88 H 10/01/20 12:43 85 166/81 H 10/01/20 12:42 78 95 10/01/20 12:39 80 167/83 H 10/01/20 12:37 81 96 10/01/20 12:30 73 98 10/01/20 12:23 90 168/84 H 10/01/20 12:09 80 169/84 H 10/01/20 12:02 86 96 10/01/20 11:57 84 97 10/01/20 11:54 81 174/84 H 10/01/20 11:52 86 99 10/01/20 11:47 79 175/89 H 98 10/01/20 11:42 88 95 10/01/20 11:40 83 195/84 H 10/01/20 11:37 88 96 10/01/20 11:32 83 97 10/01/20 11:27 76 97 10/01/20 11:24 85 140/74 10/01/20 11:22 79 96 10/01/20 11:17 78 97 10/01/20 11:12 88 97 10/01/20 11:08 36.7 C 82 16 151/90 H 10/01/20 11:07 82 97 10/01/20 11:02 88 96 10/01/20 10:57 80 98 10/01/20 10:53 85 151/84 H 10/01/20 10:52 84 96 10/01/20 10:47 93 H 96 10/01/20 10:42 92 H 95 10/01/20 10:40 97 H 144/80 H 10/01/20 10:37 90 95 10/01/20 10:32 94 H 95 10/01/20 10:31 91 H 94 10/01/20 10:27 91 H 94 10/01/20 10:25 88 18 130/86 94 11/18/20 10:22 94 H 96 11/18/20 10:17 89 95 11/18/20 10:12 100 H 95 11/18/20 10:09 82 18 148/75 H 11/18/20 10:07 83 96 /18/20 10:02 82 96 /18/20 10:00 20 /18/20 09:57 83 96 18/20 09:55 82 145/83 H 18/20 09:52 95 H 95 18/20 09:47 91 H 94 /18/20 09:45 76 93 /18/20 09:42 84 97 /18/20 09:39 81 18 138/82 /18/20 09:37 94 H 98 18/20 09:32 90 98 /18/20 09:27 85 97 18/20 09:25 90 167/86 H 18/20 09:22 90 98 18/20 09:17 99 H 98 18/20 09:12 83 96 18/20 09:10 80 16 152/79 H 18/20 09:07 83 96 18/20 09:02 83 97 /18/20 08:57 81 97 /18/20 08:54 83 147/83 H 18/20 08:52 90 96 /18/20 08:47 86 98 /18/20 08:46 81 92 /18/20 08:44 82 170/86 H 18/20 08:42 36.8 C 89 18 98 18/20 08:40 72 170/84 H 18/20 08:37 87 97 11/18/20 08:32 87 97 /18/20 08:27 89 95 11/18/20 08:24 87 145/68 H 18/20 08:22 92 H 97 /18/20 08:17 87 96 /18/20 08:14 86 94 11/18/20 08:12 86 96 /18/20 08:08 83 155/94 H /18/20 08:07 91 H 96 18/20 08:02 84 97 /18/20 07:57 82 96 18/20 07:54 86 148/83 H 18/20 07:52 93 H 99 18/20 07:47 90 96 18/20 07:42 93 H 98 18/20 07:39 89 150/88 H 93 18/20 07:37 87 95 18/20 07:32 87 100 18/20 07:27 86 98 18/20 07:24 81 141/84 H 18/20 07:22 81 98 18/20 07:17 93 H 96 18/20 07:15 36.8 C 20 18/20 07:12 75 99 18/20 07:08 90 151/90 H 18/20 07:07 88 96 18/20 07:02 86 97 18/20 07:00 86 18 92 18/20 06:57 82 97 18/20 06:54 82 146/91 H 18/20 06:52 76 98 18/20 06:47 100 H 96 18/20 06:42 97 H 98 18/20 06:39 89 137/83 18/20 06:37 96 H 97 18/20 06:32 98 H 97 18/20 06:30 18 18/20 06:28 103 H 92 18/20 06:27 100 H 96 18/20 06:23 91 H 145/79 H 18/20 06:22 98 H 98 18/20 06:17 98 H 96 18/20 06:12 87 96 18/20 06:09 89 134/77 18/20 06:07 81 97 18/20 06:02 86 97 18/20 06:00 18 18/20 05:57 93 H 94 18/20 05:53 90 141/82 H 18/20 05:52 85 96 18/20 05:47 84 96 18/20 05:42 84 96 18/20 05:39 83 136/80 /18/20 05:37 85 96 18/20 05:32 85 96 18/20 05:30 18 18/20 05:27 84 96 18/20 05:23 82 145/83 H 18/20 05:22 83 96 18/20 05:17 81 96 18/20 05:12 81 96 18/20 05:08 86 141/81 H 18/20 05:07 90 97 18/20 05:02 84 97 18/20 05:00 18 18/20 04:57 81 97 18/20 04:54 77 152/80 H 18/20 04:52 78 97 18/20 04:47 90 99 18/20 04:42 90 99 18/20 04:37 88 156/76 H 99 18/20 04:36 91 H 169/89 H 18/20 04:33 90 154/90 H 18/20 04:32 81 99 18/20 04:31 86 149/84 H 18/20 04:30 18 18/20 04:29 93 H 145/86 H 18/20 04:27 88 143/85 H 99 18/20 04:25 88 148/89 H 18/20 04:23 96 H 154/93 H 18/20 04:22 91 H 100 18/20 04:21 89 149/89 H 18/20 04:19 80 158/99 H 18/20 04:17 79 149/90 H 100 18/20 04:15 81 138/82 18/20 04:12 89 99 18/20 04:07 93 H 99 18/20 04:06 95 H 92 18/20 04:02 80 18 99 18/20 03:57 83 100 18/20 03:52 80 99 18/20 03:47 79 99 18/20 03:45 77 145/86 H 18/20 03:42 81 99 18/20 03:37 77 99 18/20 03:32 72 100 18/20 03:30 36.7 C 20 18/20 03:27 77 99 18/20 03:00 16 18/20 02:38 81 154/82 H 18/20 02:30 18 18/20 01:58 18 11/18/20 01:37 76 143/73 H 10/01/20 01:30 18 Coding Level of Care Code None
--- NOTE | 2020-10-01 13:44 | Delivery Summary ---
Vaginal Delivery Summary Date of Service October 01, 2020 Vaginal Delivery Summary Vaginal Delivery Summary: Pre-delivery diagnoses: 35yo @ 39 4/, eIOL, AMA, GBS+ Post-delivery diagnoses: same Procedure: spontaneous vaginal delivery Surgeon: Zoe Guevara DO Complications: none Findings: Viable female . Apgars: 8/9 . Weight pending, please see nursery records Estimated blood loss: 300ml Description of delivery: The patient progressed to complete with epidural anesthesia. She then began to push. She spontaneously vaginally delivered a viable from the cephalic presentation. The head delivered in RUBENS position. Nuchal cord x 1, tight - could not reduce, delivered through. The anterior shoulder delivered, followed by the posterior shoulder, followed by the body. The baby was placed on mother's abdomen and a spontaneous cry was heard. The cord was doubly clamped and cut. Cord blood was obtained. The placenta was delivered spontaneously intact with a 3-vessel cord. The uterus and vagina were swept of clots and debris. IV pitocin was given. The uterus became firm. The cervix, vagina, and perineum were inspected and no lacerations were noted. Excellent hemostasis was observed. The mother and baby are recovering in stable and good condition in the room. Sponge and instrument counts were correct x 2. Zoe Guevara DO [facility] – [place]
[2020-10-01] MEDS ORDERED: OXYTOCIN 30 UNITS/500 ML BAG IV PRN (14:03)
[2020-10-01] MEDS ORDERED: DIPHTHERIA/TETANUS/PERTUSSIS 0.5 ML SYR/VIAL IM ONE (14:03)
[2020-10-01] MEDS ORDERED: HYDROCORTISONE ACETATE 25 MG SUPP PR PRN (14:03)
[2020-10-01] MEDS ORDERED: SUPERCREAM 0.870% 15 GM JAR EXT PRN (14:03)
[2020-10-01] MEDS ORDERED: oxyCODONE/ACETAMINOPHEN 5mg/325mg TAB PO PRN (14:03)
[2020-10-01] MEDS ORDERED: BENZOCAINE 20% AER SPR 82.5 GM CAN EXT PRN (14:03)
--- NOTE | 2020-10-01 15:24 | Anesthesia Procedure Note ---
Date of Service October 01, 2020 Anesthesia Post Epidural Note Vital Signs Vital Signs: Temp Pulse Resp BP Pulse Ox 36.7 C 88 18 144/74 H 97 10/01/20 13:40 10/01/20 15:08 10/01/20 15:05 10/01/20 15:08 10/01/20 13:06 Notes Mental Status: alert / awake / arousable and participated in evaluation Nausea / Vomiting: adequately controlled Pain: adequately controlled Airway Patency, RR, SpO2: stable & adequate BP & HR: stable & adequate Hydration State: stable & adequate Neuraxial Anesthesia: was administered and sensory block is resolving Anesthetic Complications: no major complications apparent and Pt Satisfied with anesthetic care Epidural: Removed without complications and With tip intact Notes: Epidural site clean, dry and intact. No signs of edema, erythema or bruising at insertion site. Pt instructed to request anesthesia if she has residual lower extremity numbness or if she develops lower extremity pain or weakness, back pain or headache.
[2020-10-01] MEDS: IBUPROFEN 600 MG TAB PO PRN ×2 (17:38→21:30)
[2020-10-01] MEDS: DOCUSATE SODIUM 100 MG CAP PO SCH (21:30)
[2020-10-01] MEDS: LABETALOL HCL 100 MG TAB PO SCH (23:56)
[2020-10-02 00:04] LABS: Hematocrit (blood only) 30.3 % (37-47); Hemoglobin 9.9 g/dL (12.0-16.0); Mean Corpuscular Hemoglobin 29.9 pg (25-34); Mean Corpuscular Hgb Conc 32.7 g/dL (32-36); Mean Corpuscular Volume 91.5 fL (80-100); Mean Platelet Volume 10.4 fL (7.4-10.4); Platelet Count 275 K/uL (130-400); RDW Coefficient of Variation 13.6 % (11.5-14.5); RDW Standard Deviation 45.2 fL (36.4-46.3); Red Blood Count 3.31 M/uL (4.2-5.4)
[2020-10-02 00:23] LABS: Albumin Level 2.3 gm/dl (3.4-5.0); BUN Creatinine Ratio 8.5 (10-20); Calcium 8.9 mg/dl (8.5-10.1); Est GFR (African American) 137.6; Est GFR (Non-African American) 118.7; Potassium 3.3 mmol/L (3.5-5.1)
[2020-10-02 00:26] LABS: Albumin Globulin Ratio 0.6 (0.9-2); Globulin 3.6 gm/dl (2.5-4.0); Total Protein 5.9 gm/dl (6.4-8.2)
--- NOTE | 2020-10-02 06:38 | Obstetrical Progress Note ---
Date of Service <Stanton Chavez MD - Last Filed: 10/02/20 06:38> October 02, 2020 Assessment & Plan <Stanton Chavez MD - Last Filed: 10/02/20 06:38> (1) Spontaneous vaginal delivery: Melva is a 35 y/o female who is now PPD #1 following medically- indicated IOL in setting of PIH, with subsequent at 39-4/7 weeks S/P - Feels well today. Eating well, voiding well, ambulating well. - Pain well controlled with ibuprofen 600mg Q4H PRN. - Routine PPD care -- OOB, ambulation, diet progression as tolerated - After discharge will have [address] Ismael Saldana - BPs have continued to remain elevated in the 140-150/70-80 range throughout the night - s/p nifedipine 10mg + 20mg PO x 1 yesterday between 1300-1400hr - Initiated on labetolol 100mg PO b.i.d. around 0000 - continue as scheduled - PIH labs throughout yesterday WNL - Will need 1 week f/u upon d/c for BP check (2) Gestational hypertension: Subjective <Stanton Chavez MD - Last Filed: 10/02/20 06:38> Tori is a 35 y/o female who is now PPD #1 following medically-indicated IOL in setting of PIH, with subsequent at 39-4/7 weeks. Reports feeling well overall this morning. Minimal abdominal cramping with pain well managed on analgesics. Voiding without difficulty. Tolerating meals well and able to ambulate some. Endorses passing gas. Some persistent lochia with some improvement this morning. Bottle feeding. BPs overnight in the 140-150/70-80 range. Melva does continue to endorse a mild FUENTES which has improved somewhat with the ibuprofen, but is still persistent. No changes in vision. No CP/SOB. No abdominal pain. Received nifedipine 10mg + 20mg PO x 1 between 1300-1400hr alongside being initiated on labetolol 100mg PO b.i.d. around 0000. Review of Systems Denies fever, chills, sweats Denies shortness of breath, difficulty breathing, chest pain, palpitations, chest pressure. Denies breast pain. Denies dysuria. Denies headache or changes in vision. Physical Exam <Stanton Chavez MD - Last Filed: 10/02/20 06:38> General: Alert, oriented. No acute distress. Cardiac: Regular rate and rhythm, no murmurs/rubs/gallops. Respiratory: Clear to auscultation bilaterally a/p, no wheezes/rales/rhonchi. No increased work of breathing. Symmetrical chest rise. No respiratory distress. Abdomen: Soft, nontender, nondistended. Bowel sounds present. Uterus: Uterine fundus firm, palpable 2 cm below umbilicus. Lower Extremities: No lower extremity edema or swelling. No deep calf pain. Yolanda's negative bilaterally. Results & Data ([facility]) <Stanton Chavez MD - Last Filed: 10/02/20 06:38> Vital Signs (Past 12 Hours) Vital Signs Temp Pulse Resp BP 10/02/20 04:30 36.6 C 73 18 149/79 H 10/02/20 01:03 82 147/88 H 10/01/20 23:55 80 154/84 H 10/01/20 23:05 36.6 C 87 18 159/91 H 10/01/20 18:45 36.7 C 85 20 172/89 H <Zoe Guevara DO - Last Filed: 10/02/20 07:46> Co-Signing Physician Notes Resident Physician Supervision Note: I was present with Dr. Chavez during the history and exam. I discussed the case with the resident and agree with the findings and plan as documented in the note. Any exceptions or clarifications are listed here: PPD#1 doing well. BPs elevated, started labetalol 100mg BID last night. Will continue to monitor BPs today. Documented By: Zoe Guevara DO Resident Activity Tracking <Stanton Chavez MD - Last Filed: 10/02/20 06:38> Resident Involvement: Resident Care Provided Care Provided: Adult Hospital Medicine and OB Delivery
[2020-10-02] MEDS: IBUPROFEN 600 MG TAB PO PRN ×2 (06:47→12:02)
[2020-10-02 07:28] LABS: Hematocrit (blood only) 28.9 % (37-47); Hemoglobin 9.4 g/dL (12.0-16.0); Mean Corpuscular Hemoglobin 29.9 pg (25-34); Mean Corpuscular Hgb Conc 32.5 g/dL (32-36); Mean Platelet Volume 10.7 fL (7.4-10.4); Platelet Count 285 K/uL (130-400); RDW Coefficient of Variation 13.6 % (11.5-14.5); RDW Standard Deviation 45.6 fL (36.4-46.3); Red Blood Count 3.14 M/uL (4.2-5.4); White Blood Count 14.09 K/uL (4.8-10.8)
[2020-10-02] MEDS: LABETALOL HCL 100 MG TAB PO SCH (08:42)
[2020-10-02] MEDS: PRENATAL VITAMIN 1 TAB PO SCH (08:42)
[2020-10-02] MEDS: DOCUSATE SODIUM 100 MG CAP PO SCH ×2 (08:42→21:08)
[2020-10-02] MEDS: ACETAMINOPHEN 325 MG TAB PO PRN ×2 (08:43→21:08)
[2020-10-02] MEDS: LORATADINE 10 MG TAB PO SCH (12:02)
--- NOTE | 2020-10-02 18:17 | Communication Note ---
Date of Service: October 02, 2020 Patient has had increasing blood pressures over the afternoon. Need to increase dose of labetolol to 200mg bid. Patient is quite upset. Wanted to go home at 24 hours. Her son is having a difficult time with her being away and did not have a good night last night. I have recommended staying over night tonight. I explained to the patient the risk of elevated blood pressure and possiblity of seizure if she goes home. If she choses to go home, will not make her sign ama papers, even though it is against may advice. Would need to come to the office tomorrow for a blood pressure check. Would want patient to stay until lunch tomorrow to watch what blood pressure does on am dose of medication. It is ok for her to come and go at any time. for now, she agrees to stay. tearful. Questions answered. She currently has no s/s of preeclampsia at this time.
[2020-10-02] MEDS ORDERED: bisacodyL 5 MG TABEC PO SCH (20:00)
[2020-10-02] MEDS: LABETALOL HCL 200 MG TAB PO SCH (21:09)
--- NOTE | 2020-10-03 05:23 | Obstetrical Progress Note ---
Date of Service <Stanton Chavez MD - Last Filed: 10/03/20 06:30> October 03, 2020 Assessment & Plan <Stanton Chavez MD - Last Filed: 10/03/20 06:30> (1) Spontaneous vaginal delivery: Melva is a 35 y/o female who is now PPD #2 following medically- indicated IOL in setting of PIH, with subsequent at 39-4/7 weeks S/P - Feels well today. Eating well, voiding well, ambulating well. - Pain well controlled with ibuprofen 600mg Q4H PRN. - Routine PPD care -- OOB, ambulation, diet progression as tolerated - Anticipate d/c today - After discharge will have [address] Ismael Saldana - BPs were primarily in the 140s/70s last night with some spikes to SBP 170s. Nicely stabilized at 128/76 this AM. - Recheck and monitor BPs through noon today - Labetalol increased from 100mg --> 200mg PO b.i.d. yesterday evening. Patient has been tolerating well. - Reviewed symptoms of HTN and HoTN. Patient denies any pre-eclamptic like symptoms or orthostasis. - Will need 1 week f/u upon d/c for BP check - scheduled for next Tuesday (2) Gestational hypertension: Subjective <Stanton Chavez MD - Last Filed: 10/03/20 06:30> Melva is a 35 y/o female who is now PPD #2 following IOL in setting of PIH beginning at 39+ WGA, with subsequent at 39-4/7 weeks. Reports feeling well overall this morning. Endorses minimal abdominal cramping and pain. Voiding without difficulty. Tolerating meals well and able to ambulate some. Endorses passing gas. Some persistent lochia with some improvement this morning. Bottle feeding without difficulty. BPs overnight ranged in the 140/90 with some bumps to SBP 170s. Nicely stabilized at 128/76 this AM. Reports feeling well since being increased to labetalol 200mg PO b.i.d. last night (from 100 b.i.d.). No FUENTES/changes in vision/chest pain/palpitations/SOB/abdominal pain. Review of Systems Denies fever, chills, sweats Denies shortness of breath, difficulty breathing, chest pain, palpitations, chest pressure. Denies breast pain. Denies dysuria. Denies headache or changes in vision. Physical Exam <Stanton Chavez MD - Last Filed: 10/03/20 06:30> General: Alert, oriented. No acute distress. Cardiac: Regular rate and rhythm, no murmurs/rubs/gallops. Respiratory: Clear to auscultation bilaterally a/p, no wheezes/rales/rhonchi. No increased work of breathing. Symmetrical chest rise. No respiratory distress. Abdomen: Soft, nontender, nondistended. Bowel sounds present. Uterus: Uterine fundus firm, palpable 2 cm below umbilicus. Lower Extremities: No lower extremity edema or swelling. No deep calf pain. Yolanda's negative bilaterally. Results & Data ([facility]) <Stanton Chavez MD - Last Filed: 10/03/20 06:30> Vital Signs (Past 12 Hours) Vital Signs Temp Pulse Resp BP Pulse Ox 10/03/20 00:40 36.6 C 78 16 128/76 96 10/02/20 20:55 36.6 C 68 16 148/83 H 97 10/02/20 18:00 173/94 H <Mis Wilson MD, FACOG - Last Filed: 10/03/20 07:28> Co-Signing Physician Notes Resident Physician Supervision Note: I interviewed and examined the patient. Discussed with Dr. Chavez and agree with findings and plan as documented in the note. Any exceptions or clarifications are listed here: Pressures looking better on 200mg labetolol. Plan on d/c tod ay. reviewed s/s to worry about and to call with any concerns. Has BP f/u in the office on . Documented By: Mis Wilson MD, FACOG Resident Activity Tracking <Stanton Chavez MD - Last Filed: 10/03/20 06:30> Resident Involvement: Resident Care Provided Care Provided: Adult Hospital Medicine and OB Delivery
[2020-10-03] MEDS ORDERED: bisacodyL 10 MG SUPP PR PRN (06:00)
[2020-10-03] MEDS: DOCUSATE SODIUM 100 MG CAP PO SCH (08:36)
[2020-10-03] MEDS: LABETALOL HCL 200 MG TAB PO SCH (08:37)
[2020-10-03] MEDS: PRENATAL VITAMIN 1 TAB PO SCH (08:37)
[2020-10-03] MEDS: IBUPROFEN 600 MG TAB PO PRN (08:38)
[2020-10-03] MEDS: LORATADINE 10 MG TAB PO SCH (08:38)
== END 2020-10-03 11:10 | disposition home or self-care (01) | DRG 807 ==
LOC: OPB 20:07 → 4S1 20:08 → 4S2 10-01 17:30

== ENCOUNTER 2023-05-13 09:00 | Inpatient (IN) ==
--- NOTE | 2023-05-05 11:34 | Anesthesiology Consultation ---
Date of Service May 05, 2023 Assessment & Plan (1) Encounter for pre-operative examination: Plan - awaiting updated echocardiogram. Report will then be further reviewed by anesthesia team. - severe pulmonary hypertension noted on 12/2020 echocardiogram with PASP 110 mmHg. This echo pressure is also noted in 06/[address] Lew, patient advised to have annual echocardiograms. No more recent echo per Dr. Lew's office/patient. Case discussed in detail with Drs. Underwood and Sheldon who advised updated echocardiogram or patient will need to deliver at a tertiary center. Nara with [facility] office was made aware and advised this will be forwarded to Dr. Guevara who is covering OB today. Case discussed in detail with Dr. Guevara who advised their office will coordinate SUSHMA echo for patient and agreed with recommendations by anesthesiologists as above. I contacted patient, she denies awareness of this notation on previous echo. Above was discussed in detail with patient and she is agreeable to echocardiogram and aware that pending results she may need to have at a larger facility. I advised she needs to follow-up with cardiology independent of upcoming echo results. She reports mild shortness of breath with stairs in later stage of ; denies shortness of breath or dyspnea prior to surgery; denies any presyncope or syncope. She verbalized understanding of plan, denied questions or concerns. - COVID screening: Per front elevator operator on 05/04/2023: Travel screen negative, no known COVID-19 positive contacts or current COVID-19 related symptoms in past 2 weeks. To surgeon's discretion if preop COVID testing is needed. Chart Review Chart Review: Pending: Refer to Additional Notes / Consult section and Patient NOT seen in Pre Admission Testing History Surgery Operation Date: 05/13/23 11:30 Proposed Procedures p Section (Delivery of Baby Through Abdominal Incision) - Fabiola Lay MD, FACOG Height/Weight Height: 5 ft 5 in Weight: 84.368 kg Allergies Allergy/AdvReac Type Severity Reaction Status Date / Time No Known Allergies Allergy Verified 05/04/23 09:43 Medications Home Medications Medication Instructions Recorded Confirmed Last Taken prenat.vits,yung,tra-cxpg-[id number] 1 tab PO DAILY 02/20/20 05/04/23 09/30/20 labetalol 200 mg tablet 400 mg PO BID 10/15/22 05/04/23 Unknown ferrous sulfate 325 mg (65 mg 325 mg PO DAILY 04/06/23 05/04/23 Unknown iron) tablet,delayed release esomeprazole magnesium 20 mg 20 mg PO QAM 05/04/23 05/04/23 Unknown capsule,delayed release (Nexium) Past Medical History Medical History (Updated 05/05/23 @ 12:05 by Zita Bentley PA-C) Gastric reflux Gestational hypertension Group beta Strep positive History of arthritis History of COVID-19 2020, tested at home, not hosp; head cold symptoms>resolved. History of migraine History of varicella Hx of reduction of closed fracture lt arm, at age 6 Pulmonary hypertension listed as severe, PASP 110 mmHg on 2020 echo Supervision of elderly multigravida Past Family History Family History Grandmother (Maternal) Breast cancer Mother Thyroid disease Past Surgical History Surgical History (Updated 05/04/23 @ 09:50 by Beryl Lira) H/O oral surgery History of esophagogastroduodenoscopy (EGD) Hx of colonoscopy Social History Smoking Status: Former smoker Do You Dip or Chew Tobacco: No Smoking End Date: 2016 Hx Alcohol Use: Yes (not while ) alcohol intake frequency: holidays/special occasions only Hx Substance Use: No substance use type: does not use Lab Results Anesthesia Preop Results Results Anesthesia Widget: Hgb 10.9 g/dl (12.0-16.0) L 03/09/23 Hct 31.6 % (37.0-47.0) L 03/09/23 Testing Echocardiogram Date: 01/01/21 EF 61% Mild to moderate mitral regurgitation Mild tricuspid regurgitation Mildly enlarged LA Severe pulmonary hypertension, PASP 110 mmHG Stress Test Date: 01/08/21 Exercise MPHR 90% METS 12 Negative Very low probability of ischemia Low risk
--- NOTE | 2023-05-13 08:14 | History & Physical Report ---
Date of Service May 13, 2023 Assessment & Plan (1) Breech presentation: Plan: section. The patient was counseled to the nature of the procedure including alternatives such as labor. Risks were discussed including bleeding infection injury to bowel bladder ureter vessels and even baby. Deep Vein thrombosis, pulmonary embolus discussed. Breakdown of incision reviewed. Deep vein thrombosis pulmonary embolus hernia and failure of the incision to heal were discussed Patient verbalized understanding of this and was given ample time to ask questions History of Present Illness Primary Care Provider: Oscar Sparks DO Current Estimate 05/26/23 LMP (Uncertain) 38w 0d LMP: 08/19/22 : 3 Full term: 2 Premature: 0 Total Number of Induced Abortions: 0 Total Number of Spontaneous Abortions: 0 Ectopics: 0 Multiple births: 0 Number of Living Children: 2 and Delivery Plans CHTN *Baby ASA daily start 12-28 wks, continue until delivery *wkly NST's @32wks and twice wkly @36 wks *Serial Growth US @ 24 (Doppler only if abnml) *Baseline 24hr urine (additional PRN) 01/11 125 *weekly RAFAL's @ 32wk(if on Meds) *Deliver [id number] -->IOL 05/13 with Pramod, last remaining relevant opening On Labetalol 400 BID BREECH PRESENTATION C/S SCHEDULED FOR 05/13/[address] PRAMOD SMITH *Weekly NST's @ 36wks. H/O pulmonary hypertension, severe (maternal) - 2020 - Needs urgent maternal echo--WNL Allergies Allergy/AdvReac Type Severity Reaction Status Date / Time No Known Allergies Allergy Verified 05/12/23 15:17 Home Medications Medication Instructions Recorded Confirmed Type prenat.vits,yung,ccu-slse-bddib 1 tab PO DAILY 02/20/20 05/12/23 History labetalol 200 mg tablet 400 mg PO BID 10/15/22 05/12/23 History ferrous sulfate 325 mg (65 mg 325 mg PO DAILY 04/06/23 05/12/23 History iron) tablet,delayed release esomeprazole magnesium 20 mg 20 mg PO QAM 05/04/23 05/12/23 History capsule,delayed release (Nexium) Patient History Medical History (Updated 06/29/23 @ 13:36 by Denia Blanco MD, FACOG) Gastric reflux Gestational hypertension Group beta Strep positive History of arthritis History of COVID-19 2020, tested at home, not hosp; head cold symptoms>resolved. History of migraine History of varicella Hx of reduction of closed fracture lt arm, at age 6 Pulmonary hypertension listed as severe, PASP 110 mmHg on 2020 echo Supervision of elderly multigravida Surgical History H/O oral surgery History of esophagogastroduodenoscopy (EGD) Hx of colonoscopy Family History Grandmother (Maternal) Breast cancer Mother Thyroid disease Social History Smoking Status: Never smoker Second Hand Exposure: No; Do You Dip or Chew Tobacco: No; Hx Alcohol Use: Yes (not while ) Hx Substance Use: No Preferred Language: Yi Communication Ability: Effective Medical Staff Assistant Required: No Beliefs That Will Affect Care: None marital status: marital status details: Stanton Saldana (31) [phone] Current Living Situation: Spouse and Family Current Living Situation Comment: house with 2 children, 1 dog. current occupational status: other current occupation: homemaker Feels Safe at Home: Yes Assistive Devices: None Review of Systems as per Subjective / HPI Physical Exam Constitutional: WD/WN, vitals as above well developed and well nourished Respiratory: normal respiratory effort, lungs clear to auscultation normal respiratory effort Cardiovascular: RRR, no murmur, no edema Gastrointestinal (Abdomen): normal bowel sounds, soft, nontender, no hepatosplenomegaly Coding Level of Care Code None Diagnoses Breech presentation O32.1XX0
[~2023-05-13 09:00] MED LIST changes: +CITRIC ACID/SODIUM CITRATE 15 ML UDC PO SCH; -CLR10 PO; -DOCO200C2; +LACTATED RINGER'S 1,000 ML IV SCH; -PRENCAP38 PO; +ceFAZolin 2,000 MG in SYRINGE 0 ML IV SCH
[2023-05-13] MEDS ORDERED: CITRIC ACID/SODIUM CITRATE 15 ML UDC PO SCH (10:15)
[2023-05-13] MEDS ORDERED: LACTATED RINGER'S 1,000 ML IV SCH ×2 (10:15→16:43)
[2023-05-13 10:45] LABS: Basophils # (auto) 0.06 K/uL (0-0.2); Basophils % (auto) 0.7 %; Eosinophils # (auto) 0.05 K/uL (0-0.50); Eosinophils % (auto) 0.6 %; Immature Granulocytes # (auto) 0.06 K/uL (0.01-0.20); Immature Granulocytes % (auto) 0.7 %; Lymphocytes # (auto) 1.32 K/uL (1.2-3.4); Lymphocytes % (auto) 15.1 %; Mean Corpuscular Hemoglobin 31.8 pg (25.0-34.0); Mean Corpuscular Hgb Conc 35.3 g/dL (32.0-36.0); Mean Corpuscular Volume 90.2 fL (80.0-100.0); Mean Platelet Volume 10.8 fL (9.4-12.4); Monocytes # (auto) 0.52 K/uL (0.11-0.59); Monocytes % (auto) 5.9 %; Neutrophils # (auto) 6.75 K/uL (1.40-6.50); Platelet Count 234 K/uL (130-400); RDW Coefficient of Variation 12.7 % (11.5-14.5); RDW Standard Deviation 41.9 fL (36.4-46.3); Red Blood Count 3.77 M/uL (4.20-5.40); White Blood Count 8.76 K/ul (4.8-10.8)
[2023-05-13] MEDS ORDERED: ONDANSETRON INJ 2 MG/ML 2 ML VIAL ONE (12:24)
[2023-05-13] MEDS ORDERED: ePHEDrine sulfate 50 MG/ML SYR ONE (12:24)
[2023-05-13] MEDS ORDERED: fentaNYL citrate PF 100 MCG/2 ML VIAL ONE (12:24)
[2023-05-13] MEDS ORDERED: LIDOCAINE 2% MPF LOCAL 5 ML VIAL ONE (12:24)
[2023-05-13] MEDS ORDERED: OXYTOCIN 10 UNITS/ML VIAL ONE (12:24)
[2023-05-13] MEDS ORDERED: MoRPHine SULFATE PF 1 MG/ML 10 ML AMP/VIAL ONE (12:24)
[2023-05-13] MEDS ORDERED: NALOXONE HCL 0.08 MG in SYRINGE 1.8 ML IV PRN (15:50)
[2023-05-13] MEDS ORDERED: ePHEDrine sulfate 50 MG/ML AMP IV PRN (15:50)
[2023-05-13] MEDS ORDERED: PROMETHAZINE HCL 6.25 MG in SODIUM CHLORIDE 0.9% 50 ML IV PRN (15:50)
[2023-05-13] MEDS ORDERED: diphenhydrAMINE 50 MG/ML VIAL IV PRN (15:50)
[2023-05-13] MEDS ORDERED: NALOXONE HCL 1 MG in SODIUM CHLORIDE 0.9% 1000ML 1,000 ML IV PRN (15:50)
[2023-05-13] MEDS ORDERED: NALOXONE HCL 0.4 MG/1 ML VIAL/CARP IV PRN (15:50)
[2023-05-13] MEDS ORDERED: HYDROmorphone INJ 0.5 MG/0.5 ML SYR IV PRN (15:50)
[2023-05-13] MEDS ORDERED: ONDANSETRON INJ 2 MG/ML 2 ML VIAL IV PRN (15:50)
[2023-05-13] MEDS ORDERED: MoRPHine SULFATE PF 1 MG/ML 10 ML AMP/VIAL EPI ONE (15:50)
[2023-05-13] MEDS ORDERED: LACTATED RINGER'S 500 ML IV PRN (15:50)
[2023-05-13] MEDS ORDERED: SODIUM CHLORIDE 0.9% 1000ML 1,000 ML IV SCH (16:00)
[2023-05-13] MEDS ORDERED: NO NARCOTICS OR SEDATIVES SCH (16:00)
[2023-05-13] MEDS ORDERED: DC INTRASPINAL MORPHINE SCH (16:00)
--- NOTE | 2023-05-13 16:18 | Operative Report ---
PG Post Operative Report Pre & Post Diagnosis Operation Date: 05/13/23 11:35 Breech presentation I identified the patient and participated in the time-out.: Yes Procedure Operation Date: 05/13/23 11:35 Low transverse section Surgeon Fabiola Lay MD, FACOG [facility] [employer] Dr. Bustillo Estimated Blood Loss 600 Findings Consistent with Post-Op Diagnosis Specimens Cord gases Cord blood Description of Procedure Note Dr. Bustillo did attempt a version after epidural prior to the procedure but this was unsuccessful so we proceeded to section Regional anesthetic had been given by anesthesia patient was prepped and draped with a leftward tilt preoperative antibiotics had been given in appropriate timing by anesthesiology. Once the prep was allowed to fully dry timeout was performed. Pickups with teeth were used to test the incision area was found to be adequate for incision as the patient did not feel sharp pain. Scalpel was used to make a Pfannenstiel incision on the lower abdomen. We then cut through the subcutaneous fat down to the level of the anterior rectus sheath fascia this was cut in the midline and then extended laterally with the curved Meadows scissors. At this stage we then placed 2 Parveen clamps on the anterior aspect of the fascia. Using the curved Meadows's we are able to dissect the fascia superiorly away from the rectus muscles. Care was taken to maintain hemostasis. Parveen clamps were then placed to the inferior aspect of the anterior sheath of the fascia. Fascia was then dissected away from the rectus muscles inferiorly towards the pubic bone. A Parveen was then placed in the midline both inferiorly and superiorly. This was to allow exposure by retraction rectus muscles were in the midline with were then able to cut through the peritoneum and then enter the peritoneal cavity. Opening was enlarged to allow exposure of the peritoneal cavity both superiorly and inferiorly. Once adequate space was obtained a bladder retractor was placed to expose the lower segment Metzenbaums were used to dissect the bladder flap inferiorly away from the uterus. This was done sharply bladder retractor was then repositioned to expose the lower segment of the uterus Fresh scalpel was used to make a low transverse incision on the uterus. Uterus was then entered bluntly with the operators finger, membranes ruptured and the opening was enlarged using the operators fingers bluntly pulling superiorly and inferiorly to allow exposure. Baby was in gosia breech position was able to flex the hips and then the in the back anterior with pressure from the seismic survey assistant then able to deliver the buttocks. Both legs were then easily delivered the arms were swept across the chest gently to deliver them and then head was delivered without any difficulty over the flexion. Live vigorous . Fluid was clear cord clamped and cut cord gases obtained cord blood obtained baby handed to pediatrics. Placenta removed was removed with traction we ensure the entire placenta was removed with a moist lap sponge into the uterus Uterus was then exteriorized. IV Pitocin had been started by anesthesia tone improved there were no extensions the uterus was then closed using 0 Monocryl in a 2 layer closure the first layer closed in a running locked fashion from left to right and then a second closure from left to right in a running nonlocked fashion. At this stage hemostasis was excellent. Uterus was placed back in the peritoneal cavity with suction irrigation out and inspection of the uterus at this stage revealed excellent hemostasis Note the uterus and adnexa were both normal there were no septums and the uterus was not bicornuate Retractors were removed urine color was clear at this stage of the case we ins pected the rectus muscles they were hemostatic fascia was closed with 0 Vicryl subcutaneous fat was irrigated and closed with 3-0 Vicryl skin closed with 4-0 subcuticular Monocryl I attest to the content of the Intraoperative Record and any orders documented therein. Any exceptions are noted below. OB Procedure Charges 48477
--- NOTE | 2023-05-13 16:24 | Anesthesia Procedure Note ---
Date of Service May 13, 2023 Anesthesia Post Epidural Note Vital Signs Vital Signs: Temp Pulse Resp BP Pulse Ox 36.8 C 71 16 141/80 H 95 05/13/23 10:17 05/13/23 16:21 05/13/23 10:17 05/13/23 16:21 05/13/23 16:20 Notes Mental Status: alert / awake / arousable and participated in evaluation Patient Amnestic to Procedure: No Nausea / Vomiting: adequately controlled Pain: adequately controlled Airway Patency, RR, SpO2: stable & adequate BP & HR: stable & adequate Hydration State: stable & adequate Neuraxial Anesthesia: was administered and sensory block is resolving Anesthetic Complications: no major complications apparent and Pt Satisfied with anesthetic care Epidural: Removed without complications and With tip intact
--- NOTE | 2023-05-13 16:24 | Anesthesiology Progress Note ---
Date of Service May 13, 2023 Anesthesia Post Procedure Vital Signs Vital Signs: Temp Pulse Resp BP Pulse Ox 05/13/23 16:20 70 95 05/13/23 16:21 71 141/80 H 05/13/23 15:00 63 188/101 H 05/13/23 14:59 81 97 05/13/23 14:54 75 96 05/13/23 14:49 72 96 05/13/23 14:44 88 96 05/13/23 14:39 74 95 05/13/23 14:34 84 96 05/13/23 14:29 84 97 05/13/23 10:45 77 137/92 05/13/23 10:29 76 174/92 H 05/13/23 10:17 36.8 C 76 16 174/92 H Transfer of Care Handoff Completed per policy Notes Mental Status: alert / awake / arousable and participated in evaluation Patient Amnestic to Procedure: No Nausea / Vomiting: adequately controlled Pain: adequately controlled Airway Patency, RR, SpO2: stable & adequate BP & HR: stable & adequate Hydration State: stable & adequate Neuraxial Anesthesia: was administered and sensory block is resolving Anesthetic Complications: no major complications apparent and Pt Satisfied with anesthetic care
[2023-05-13] MEDS ORDERED: HYDROCORTISONE ACETATE 25 MG SUPP PR PRN (16:43)
[2023-05-13] MEDS ORDERED: MAGNESIUM HYDROXIDE SUSP 30 ML UDC PO PRN (16:43)
[2023-05-13] MEDS ORDERED: SENNA 8.6 MG TAB PO PRN (16:43)
[2023-05-13] MEDS ORDERED: DIPHTHERIA/TETANUS/PERTUSSIS Vaccine (Tdap, Age 7+yrs) 0.5mL SYR/VL IM ONE (16:43)
[2023-05-13] MEDS ORDERED: BENZOCAINE 20% SPRY 85 APPLN/85 GM CAN EXT PRN (16:43)
[2023-05-13] MEDS: KETOROLAC 30 MG/ML VIAL IV PRN (18:19)
[2023-05-13] MEDS: OXYTOCIN 20 UNITS in LACTATED RINGER'S 1,000 ML IV SCH (18:33)
[2023-05-13] MEDS: NALBUPHINE HCL INJ 10 MG/ML AMP IV PRN (19:34)
[2023-05-13] MEDS: SIMETHICONE 80 MG CHEW PO SCH (19:35)
[2023-05-13] MEDS: DOCUSATE SODIUM 100 MG CAP PO SCH (19:35)
[2023-05-13 19:38] LABS: Base Excess Cord Venous Blood -3.5 mEq/L (-7.7-1.9); Cord Venous Blood HCO3 22 mmol/L (18.4-26.8); Cord Venous Blood PCO2 41 mmHg (30.4-57.2); Cord Venous Blood PO2 42 mmHg (14.1-43.3); Cord Venous Blood pH 7.34 (7.20-7.44); O2 Saturation Cord Venous Bld 80.1 % (<68)
[2023-05-13 19:39] LABS: Base Excess Cord Arterial Bld -1.7 mEq/L (-9-1.8); CO2 Cord Arterial Blood 57 mmHg (39.1-73.5); HCO3 Cord Arterial Blood 26 mmol/L (19.7-28.5); Oxygen Sat Cord Arterial Blood < 60.0 % (<60); PO2 Cord Arterial Blood 21 mmHg (4.1-31.7); pH Cord Arterial Blood 7.27 (7.1-7.38)
[2023-05-13] MEDS ORDERED: LABETALOL HCL 100 MG TAB ONE (20:00)
[2023-05-13 20:33] LABS: Hematocrit (blood only) 30.9 % (37.0-47.0); Hemoglobin 10.7 g/dl (12.0-16.0); Mean Corpuscular Hemoglobin 31.3 pg (25.0-34.0); Mean Corpuscular Hgb Conc 34.6 g/dL (32.0-36.0); Mean Corpuscular Volume 90.4 fL (80.0-100.0); Mean Platelet Volume 10.5 fL (9.4-12.4); Platelet Count 223 K/uL (130-400); RDW Coefficient of Variation 12.9 % (11.5-14.5); RDW Standard Deviation 42.4 fL (36.4-46.3); Red Blood Count 3.42 M/uL (4.20-5.40); White Blood Count 12.38 K/ul (4.8-10.8)
[2023-05-13 20:52] LABS: Creatinine Clr Calc Pharmacy 138.5 ml/min; Est GFR (African American) 135.7 ml/min; Est GFR (Non-African American) 117.1 ml/min
[2023-05-13] MEDS ORDERED: LABETALOL HCL IV 5 MG/ML 20ML IV STA (20:55)
[2023-05-13] MEDS ORDERED: LABETALOL HCL 200 MG TAB PO SCH (21:00)
[2023-05-14] MEDS: NALBUPHINE HCL INJ 10 MG/ML AMP IV PRN (00:20)
[2023-05-14] MEDS: KETOROLAC 30 MG/ML VIAL IV PRN ×2 (00:39→09:04)
[2023-05-14] MEDS: OXYTOCIN 20 UNITS in LACTATED RINGER'S 1,000 ML IV SCH (03:02)
[2023-05-14] MEDS ORDERED: ceFAZolin 2000MG 2,000 MG/15 ML SYR IV SCH (06:00)
[2023-05-14 07:16] LABS: Basophils # (auto) 0.05 K/uL (0-0.2); Basophils % (auto) 0.5 %; Eosinophils # (auto) 0.07 K/uL (0-0.50); Eosinophils % (auto) 0.7 %; Hematocrit (blood only) 30.8 % (37.0-47.0); Hemoglobin 10.6 g/dl (12.0-16.0); Immature Granulocytes # (auto) 0.05 K/uL (0.01-0.20); Immature Granulocytes % (auto) 0.5 %; Lymphocytes # (auto) 1.56 K/uL (1.2-3.4); Lymphocytes % (auto) 15.9 %; Mean Corpuscular Hemoglobin 31.7 pg (25.0-34.0); Mean Corpuscular Hgb Conc 34.4 g/dL (32.0-36.0); Mean Corpuscular Volume 92.2 fL (80.0-100.0); Mean Platelet Volume 10.7 fL (9.4-12.4); Monocytes # (auto) 0.55 K/uL (0.11-0.59); Monocytes % (auto) 5.6 %; Neutrophils # (auto) 7.53 K/uL (1.40-6.50); Neutrophils % (auto) 76.8 %; Platelet Count 214 K/uL (130-400); RDW Coefficient of Variation 12.9 % (11.5-14.5); RDW Standard Deviation 43.1 fL (36.4-46.3); Red Blood Count 3.34 M/uL (4.20-5.40); White Blood Count 9.81 K/ul (4.8-10.8)
--- NOTE | 2023-05-14 07:56 | Obstetrical Progress Note ---
Date of Service May 13, 2023 Assessment & Plan (1) Chronic hypertension affecting : Admission and Anticipated Discharge Date Admission Date: May 13, 2023 Subjective Patient brought back to labor and delivery for closer monitoring of blood pressures secondary to elevated blood pressures on . Patient's blood pressures on labor and delivery were noted to be upper limit of mild range. Patient is denying any preeclampsia symptoms. Preeclampsia labs are normal. Of note patient does have a history of chronic hypertension treated with labetalol 400 mg twice daily. Will increase next dose to 600 mg twice daily. Discussed preeclampsia precautions. Results & Data Vital Signs (Past 12 Hours) Vital Signs Temp Pulse Pulse Resp BP BP BP 05/13/23 23:00 18 05/13/23 22:00 18 05/13/23 21:00 16 05/13/23 20:45 72 178/111 H 164/92 H 05/13/23 20:00 16 05/13/23 19:30 37.0 C 72 16 180/103 H 05/13/23 19:30 16 05/13/23 18:20 36.8 C 71 182/92 H 05/13/23 17:50 73 05/13/23 17:20 36.8 C 67 16 05/13/23 17:00 69 18 05/13/23 16:50 78 16 159/85 H 05/13/23 16:40 78 16 159/85 H 05/13/23 16:30 74 16 05/13/23 16:20 36.8 C 16 05/13/23 23:13 05/13/23 23:13 79 05/13/23 23:13 73 05/13/23 23:13 159/91 H 05/13/23 23:08 05/13/23 23:08 78 05/13/23 23:03 05/13/23 23:03 82 05/13/23 23:02 86 05/13/23 23:02 166/94 H 05/13/23 22:58 05/13/23 22:58 87 05/13/23 22:53 05/13/23 22:53 78 05/13/23 22:52 75 05/13/23 22:52 157/87 H 05/13/23 22:48 05/13/23 22:48 73 05/13/23 22:43 05/13/23 22:43 68 05/13/23 22:42 70 05/13/23 22:42 154/85 H 05/13/23 22:38 05/13/23 22:38 75 05/13/23 22:33 05/13/23 22:33 77 05/13/23 22:33 62 05/13/23 22:33 156/82 H 05/13/23 22:28 05/13/23 22:28 71 05/13/23 22:23 05/13/23 22:23 80 05/13/23 22:22 72 05/13/23 22:22 161/88 H 05/13/23 22:18 05/13/23 22:18 78 05/13/23 22:13 05/13/23 22:13 62 05/13/23 22:12 65 05/13/23 22:12 166/89 H 05/13/23 22:08 05/13/23 22:08 65 05/13/23 22:03 05/13/23 22:03 69 05/13/23 21:58 05/13/23 21:58 62 05/13/23 21:58 152/82 H 05/13/23 21:53 05/13/23 21:53 65 05/13/23 21:53 155/85 H 05/13/23 21:48 05/13/23 21:48 74 05/13/23 21:48 162/89 H 05/13/23 21:43 05/13/23 21:43 76 05/13/23 21:43 77 05/13/23 21:43 155/90 H 05/13/23 21:41 05/13/23 21:41 122 H 05/13/23 21:38 05/13/23 21:38 73 05/13/23 21:38 76 05/13/23 21:38 146/89 H 05/13/23 18:38 71 182/92 H 05/13/23 18:36 88 05/13/23 18:35 70 05/13/23 18:30 73 05/13/23 18:29 66 198/86 H 05/13/23 18:25 81 05/13/23 18:20 87 05/13/23 18:15 79 05/13/23 18:13 72 05/13/23 18:10 70 05/13/23 18:11 71 201/94 H 05/13/23 18:05 71 05/13/23 18:03 71 05/13/23 18:00 70 05/13/23 17:55 70 05/13/23 17:50 05/13/23 17:50 73 05/13/23 17:50 69 05/13/23 17:45 71 05/13/23 17:42 58 L 195/93 H 05/13/23 17:40 71 170/88 H 05/13/23 17:35 66 05/13/23 17:32 62 183/91 H 05/13/23 17:30 67 05/13/23 17:25 68 05/13/23 17:22 50 L 174/89 H 05/13/23 17:20 66 05/13/23 17:19 67 05/13/23 17:15 66 05/13/23 17:13 75 168/88 H 05/13/23 17:12 78 167/101 H 05/13/23 17:10 69 05/13/23 17:05 68 05/13/23 17:02 73 165/93 H 05/13/23 17:00 69 05/13/23 16:55 71 05/13/23 16:52 78 159/85 H 05/13/23 16:50 74 05/13/23 16:45 80 05/13/23 16:42 76 166/90 H 05/13/23 16:40 69 05/13/23 16:35 66 05/13/23 16:32 73 147/80 H 05/13/23 16:30 68 05/13/23 16:25 65 05/13/23 16:20 70 05/13/23 16:21 71 141/80 H 05/13/23 15:00 63 188/101 H 05/13/23 14:59 81 05/13/23 14:54 75 05/13/23 14:49 72 05/13/23 14:44 88 05/13/23 14:39 74 05/13/23 14:34 84 05/13/23 14:29 84 Pulse Ox O2 Del Method 05/13/23 23:00 98 05/13/23 22:00 97 05/13/23 21:00 95 05/13/23 20:45 05/13/23 20:00 98 06/30/23 19:30 93 Room Air 05/13/23 19:30 94 05/13/23 18:20 05/13/23 17:50 95 05/13/23 17:20 96 05/13/23 17:00 96 05/13/23 16:50 05/13/23 16:40 05/13/23 16:30 95 05/13/23 16:20 05/13/23 23:13 97 05/13/23 23:13 05/13/23 23:13 05/13/23 23:13 05/13/23 23:08 97 05/13/23 23:08 05/13/23 23:03 98 05/13/23 23:03 05/13/23 23:02 05/13/23 23:02 05/13/23 22:58 97 05/13/23 22:58 05/13/23 22:53 97 05/13/23 22:53 05/13/23 22:52 05/13/23 22:52 05/13/23 22:48 97 05/13/23 22:48 05/13/23 22:43 97 05/13/23 22:43 05/13/23 22:42 05/13/23 22:42 05/13/23 22:38 96 05/13/23 22:38 05/13/23 22:33 97 05/13/23 22:33 05/13/23 22:33 05/13/23 22:33 05/13/23 22:28 96 05/13/23 22:28 05/13/23 22:23 96 05/13/23 22:23 05/13/23 22:22 05/13/23 22:22 05/13/23 22:18 97 05/13/23 22:18 05/13/23 22:13 96 05/13/23 22:13 05/13/23 22:12 05/13/23 22:12 05/13/23 22:08 97 05/13/23 22:08 05/13/23 22:03 97 05/13/23 22:03 05/13/23 21:58 97 05/13/23 21:58 05/13/23 21:58 05/13/23 21:53 97 05/13/23 21:53 05/13/23 21:53 05/13/23 21:48 96 05/13/23 21:48 05/13/23 21:48 05/13/23 21:43 97 05/13/23 21:43 05/13/23 21:43 05/13/23 21:43 05/13/23 21:41 94 05/13/23 21:41 05/13/23 21:38 95 05/13/23 21:38 05/13/23 21:38 05/13/23 21:38 05/13/23 18:38 05/13/23 18:36 94 05/13/23 18:35 97 05/13/23 18:30 96 05/13/23 18:29 05/13/23 18:25 96 05/13/23 18:20 95 05/13/23 18:15 96 05/13/23 18:13 94 05/13/23 18:10 96 05/13/23 18:11 05/13/23 18:05 96 05/13/23 18:03 94 05/13/23 18:00 96 05/13/23 17:55 96 05/13/23 17:50 95 05/13/23 17:50 05/13/23 17:50 94 05/13/23 17:45 95 05/13/23 17:42 05/13/23 17:40 95 05/13/23 17:35 96 05/13/23 17:32 05/13/23 17:30 96 05/13/23 17:25 96 05/13/23 17:22 05/13/23 17:20 96 05/13/23 17:19 94 05/13/23 17:15 94 05/13/23 17:13 05/13/23 17:12 05/13/23 17:10 95 05/13/23 17:05 95 05/13/23 17:02 05/13/23 17:00 96 05/13/23 16:55 96 05/13/23 16:52 05/13/23 16:50 95 05/13/23 16:45 96 05/13/23 16:42 05/13/23 16:40 97 05/13/23 16:35 97 05/13/23 16:32 06/30/23 16:30 94 05/13/23 16:25 95 05/13/23 16:20 95 05/13/23 16:21 05/13/23 15:00 05/13/23 14:59 97 05/13/23 14:54 96 05/13/23 14:49 96 05/13/23 14:44 96 05/13/23 14:39 95 05/13/23 14:34 96 05/13/23 14:29 97 PG Care Time/CCT Total # of Minutes Spent Total Time Spent with Patient: Total time spent is greater than 50% in coordination of care (as documented) at patient's floor/unit and/or counseling patient: Coding Level of Care Code None Diagnoses Chronic hypertension affecting O10.919
[2023-05-14] MEDS: DOCUSATE SODIUM 100 MG CAP PO SCH ×2 (08:11→20:32)
[2023-05-14] MEDS: FERROUS SULFATE 325 MG TAB PO SCH (08:11)
[2023-05-14] MEDS: SIMETHICONE 80 MG CHEW PO SCH ×4 (08:11→20:32)
[2023-05-14] MEDS: PRENATAL VITAMIN 1 TAB PO SCH (08:11)
[2023-05-14] MEDS: PANTOprazole 40 MG TAB PO SCH (08:12)
--- NOTE | 2023-05-14 08:16 | Obstetrical Progress Note ---
Date of Service <Magan MuellerEamon Mckeon DO - Last Filed: 05/14/23 08:15> May 14, 2023 Assessment & Plan <Magan MuellerEamon Mckeon DO - Last Filed: 05/14/23 08:15> (1) Chronic hypertension affecting : (2) state: (3) S/P section: Plan - Feels well today. Eating well. - Grossman in place, will try to remove today. - Pain well controlled with PRN pain meds. - Routine care -- OOB, ambulation, diet progression as tolerated - BP has been a little elevated since . Increased her labetalol 400mg BID to 600mg BID starting this AM. Will continue to monitor BP. - After discharge will have 6 week follow-up with Dr. Lay. Day #:: 1 <Jovany Bustillo MD - Last Filed: 05/16/23 08:09> (1) Chronic hypertension affecting : (2) state: (3) S/P section: Subjective <Magan Mckeon DO - Last Filed: 05/14/23 08:15> Ambulation: limited ambulation Voiding: grossman catheter in place Passing Gas:: Yes Diet Tolerance:: regular diet Lochia:: Small Feeding Type:: bottle feeding Current Pain Level(1-10): 4 Review of Systems Denies fever, chills, sweats Denies shortness of breath, difficulty breathing, chest pain, palpitations, chest pressure. Denies breast pain. Denies dysuria. Denies headache or changes in vision. Physical Exam <Magan Mckeon DO - Last Filed: 05/14/23 08:15> General: Alert, oriented. No acute distress. Cardiac: Regular rate and rhythm, no murmurs/rubs/gallops. Respiratory: Clear to auscultation bilaterally a/p, no wheezes/rales/rhonchi. No increased work of breathing. Symmetrical chest rise. No respiratory distress. Abdomen: Soft, nontender, nondistended. Bowel sounds present. Uterus: Uterine fundus firm, palpable 1 cm below umbilicus. Lower Extremities: No lower extremity edema or swelling. No deep calf pain. Yolanda's negative bilaterally. Results & Data <Magan M. Buza, DO - Last Filed: 05/14/23 08:15> Vital Signs (Past 12 Hours) Vital Signs Temp Pulse Pulse Resp BP BP BP 05/14/23 06:05 36.7 C 153/99 H 05/14/23 06:00 18 05/14/23 05:00 18 05/14/23 04:00 18 05/14/23 03:00 16 05/14/23 04:00 72 18 150/90 H 05/14/23 00:00 05/14/23 01:56 18 05/14/23 01:56 67 18 135/78 05/14/23 00:00 18 05/14/23 01:04 18 05/13/23 23:36 36.7 C 84 18 153/88 H 05/13/23 23:35 18 05/13/23 23:00 18 05/13/23 22:00 18 05/13/23 21:00 16 05/13/23 20:45 72 178/111 H 164/92 H 05/13/23 23:13 05/13/23 23:13 79 05/13/23 23:13 73 05/13/23 23:13 159/91 H 05/13/23 23:08 05/13/23 23:08 78 05/13/23 23:03 05/13/23 23:03 82 05/13/23 23:02 86 05/13/23 23:02 166/94 H 05/13/23 22:58 05/13/23 22:58 87 05/13/23 22:53 05/13/23 22:53 78 05/13/23 22:52 75 05/13/23 22:52 157/87 H 05/13/23 22:48 05/13/23 22:48 73 05/13/23 22:43 05/13/23 22:43 68 05/13/23 22:42 70 05/13/23 22:42 154/85 H 05/13/23 22:38 05/13/23 22:38 75 05/13/23 22:33 05/13/23 22:33 77 05/13/23 22:33 62 05/13/23 22:33 156/82 H 05/13/23 22:28 05/13/23 22:28 71 05/13/23 22:23 05/13/23 22:23 80 05/13/23 22:22 72 05/13/23 22:22 161/88 H 05/13/23 22:18 05/13/23 22:18 78 05/13/23 22:13 05/13/23 22:13 62 05/13/23 22:12 65 05/13/23 22:12 166/89 H 05/13/23 22:08 05/13/23 22:08 65 05/13/23 22:03 05/13/23 22:03 69 05/13/23 21:58 05/13/23 21:58 62 05/13/23 21:58 152/82 H 05/13/23 21:53 05/13/23 21:53 65 05/13/23 21:53 155/85 H 05/13/23 21:48 05/13/23 21:48 74 05/13/23 21:48 162/89 H 05/13/23 21:43 05/13/23 21:43 76 05/13/23 21:43 77 05/13/23 21:43 155/90 H 05/13/23 21:41 05/13/23 21:41 122 H 05/13/23 21:38 05/13/23 21:38 73 05/13/23 21:38 76 05/13/23 21:38 146/89 H Pulse Ox O2 Del Method 05/14/23 06:05 Room Air 05/14/23 06:00 97 05/14/23 05:00 96 05/14/23 04:00 98 05/14/23 03:00 95 05/14/23 04:00 98 Room Air 05/14/23 00:00 Room Air 05/14/23 01:56 96 05/14/23 01:56 96 Room Air 05/14/23 00:00 97 05/14/23 01:04 95 05/13/23 23:36 97 Room Air 05/13/23 23:35 97 05/13/23 23:00 98 05/13/23 22:00 97 05/13/23 21:00 95 05/13/23 20:45 05/13/23 23:13 97 05/13/23 23:13 05/13/23 23:13 05/13/23 23:13 05/13/23 23:08 97 05/13/23 23:08 05/13/23 23:03 98 05/13/23 23:03 05/13/23 23:02 05/13/23 23:02 05/13/23 22:58 97 05/13/23 22:58 05/13/23 22:53 97 05/13/23 22:53 05/13/23 22:52 05/13/23 22:52 05/13/23 22:48 97 05/13/23 22:48 05/13/23 22:43 97 05/13/23 22:43 05/13/23 22:42 05/13/23 22:42 05/13/23 22:38 96 05/13/23 22:38 05/13/23 22:33 97 05/13/23 22:33 05/13/23 22:33 05/13/23 22:33 05/13/23 22:28 96 05/13/23 22:28 05/13/23 22:23 96 05/13/23 22:23 05/13/23 22:22 05/13/23 22:22 05/13/23 22:18 97 05/13/23 22:18 05/13/23 22:13 96 05/13/23 22:13 05/13/23 22:12 05/13/23 22:12 05/13/23 22:08 97 05/13/23 22:08 05/13/23 22:03 97 05/13/23 22:03 05/13/23 21:58 97 05/13/23 21:58 05/13/23 21:58 05/13/23 21:53 97 05/13/23 21:53 05/13/23 21:53 05/13/23 21:48 96 05/13/23 21:48 05/13/23 21:48 05/13/23 21:43 97 05/13/23 21:43 05/13/23 21:43 05/13/23 21:43 05/13/23 21:41 94 05/13/23 21:41 05/13/23 21:38 95 05/13/23 21:38 05/13/23 21:38 05/13/23 21:38 <Jovany Bustillo MD - Last Filed: 05/16/23 08:09> Co-Signing Physician Notes Patient seen with resident and agree with the above findings and plan. Labile blood pressures noted with occasional mild range. Patient brought over to labor and delivery last night for blood pressure monitoring. Blood pressures in mild range on L&D. Increase dosing of labetalol from 400 mg twice daily to 600 mg twice daily. We will continue to monitor. Patient is denying any preeclampsia symptoms. Preeclampsia labs normal. Resident Activity Tracking <Magan Mckeon DO - Last Filed: 05/14/23 08:15> Resident Involvement: Resident Care Provided Care Provided: OB Delivery
[2023-05-14] MEDS: LABETALOL HCL 300 MG TAB PO SCH ×2 (09:01→20:31)
[2023-05-14] MEDS ORDERED: PROMETHAZINE HCL 25 MG in SODIUM CHLORIDE 0.9% 50 ML IV PRN (09:51)
[2023-05-14] MEDS ORDERED: diphenhydrAMINE 50 MG/ML VIAL IV PRN (09:51)
[2023-05-14] MEDS ORDERED: diphenhydrAMINE Capsule 25 MG CAP PO PRN (09:51)
[2023-05-14] MEDS ORDERED: KETOROLAC 30 MG/ML VIAL IV PRN (09:51)
[2023-05-14] MEDS ORDERED: ONDANSETRON INJ 2 MG/ML 2 ML VIAL IV PRN (09:51)
[2023-05-14] MEDS: oxyCODONE/ACETAMINOPHEN 5mg/325mg TAB PO PRN ×3 (10:22→20:33)
[2023-05-14] MEDS: IBUPROFEN 600 MG TAB PO PRN ×2 (15:16→20:32)
[2023-05-14] MEDS ORDERED: bisacodyL 5 MG TABEC PO SCH (20:00)
[2023-05-15 07:19] LABS: Hematocrit (blood only) 29.6 % (37.0-47.0); Hemoglobin 10.3 g/dl (12.0-16.0)
[2023-05-15] MEDS: PRENATAL VITAMIN 1 TAB PO SCH (07:29)
[2023-05-15] MEDS: FERROUS SULFATE 325 MG TAB PO SCH (07:29)
[2023-05-15] MEDS: IBUPROFEN 600 MG TAB PO PRN (07:29)
[2023-05-15] MEDS: oxyCODONE/ACETAMINOPHEN 5mg/325mg TAB PO PRN (07:29)
[2023-05-15] MEDS: DOCUSATE SODIUM 100 MG CAP PO SCH (07:29)
--- NOTE | 2023-05-15 08:44 | Obstetrical Progress Note ---
Date of Service May 15, 2023 Assessment & Plan (1) S/P section: POD#2 doing well. Incision CDI. Feels ready for DC home today. Reviewed instructions. #20 percocet sent to pharmacy. Followup 6w PP. Subjective Ambulation: ambulating normally Voiding: no voiding problems Diet Tolerance:: regular diet Lochia:: Moderate Review of Systems All systems reviewed & are unremarkable except as noted in HPI & below Physical Exam Constitutional WD/WN, vitals as above no acute distress Respiratory normal respiratory effort Cardiovascular Rate/Rhythm: regular rate and regular rhythm Gastrointestinal (Abdomen) Inspection/Auscultation: abdomen normal to inspection; abdomen not distended Percussion/Palpation: abdomen soft Genitourinary OB Exam Abdomen: + fundal height Fundus: + firm; not tender Results & Data Vital Signs (Past 12 Hours) Vital Signs Temp Pulse Resp BP Pulse Ox O2 Del Method 05/14/23 23:18 36.4 C L 75 18 128/74 97 Room Air
[2023-05-15] MEDS: LABETALOL HCL 300 MG TAB PO SCH (09:17)
[2023-05-15] MEDS: PANTOprazole 40 MG TAB PO SCH (09:17)
[2023-05-15] MEDS: SIMETHICONE 80 MG CHEW PO SCH (09:18)
[2023-05-15] MEDS ORDERED: bisacodyL 10 MG SUPP PR PRN (16:14)
--- NOTE | 2023-05-18 14:23 | Discharge Summary ---
Date of Service May 18, 2023 Admission HPI Per Admitting Provider Current Estimate 05/26/23 LMP (Uncertain) 38w 0d LMP: 08/19/22 : 3 Full term: 2 Premature: 0 Total Number of Induced Abortions: 0 Total Number of Spontaneous Abortions: 0 Ectopics: 0 Multiple births: 0 Number of Living Children: 2 and Delivery Plans CHTN *Baby ASA daily start 12-28 wks, continue until delivery *wkly NST's @32wks and twice wkly @36 wks *Serial Growth US @ 24 (Doppler only if abnml) *Baseline 24hr urine (additional PRN) 01/11 125 *weekly RAFAL's @ 32wk(if on Meds) *Deliver [id number] -->IOL 05/13 with Rosanne, last remaining relevant opening On Labetalol 400 BID BREECH PRESENTATION C/S SCHEDULED FOR 05/13/[address] BENAVIDEZ AMA *Weekly NST's @ 36wks. H/O pulmonary hypertension, severe (maternal) - 2020 - Needs urgent maternal echo--WNL Admission Exam (Per Admitting) Constitutional WD/WN, vitals as above well developed and well nourished Respiratory normal respiratory effort, lungs clear to auscultation normal respiratory effort Cardiovascular RRR, no murmur, no edema Gastrointestinal (Abdomen) normal bowel sounds, soft, nontender, no hepatosplenomegaly Discharge Data Consultations 05/13/23 10:01 Consult Anesthesiology Stat Procedures Performed Operation Date: 05/13/23 11:35 Actual Procedures p Section delivery of live female child at 1542 - Fabiola Benavidez [place], [facility] [place] (1) Chronic hypertension affecting : (2) state: (3) S/P section: Plan - Feels well today. Eating well. - Song in place, will try to remove today. - Pain well controlled with PRN pain meds. - Routine care -- OOB, ambulation, diet progression as tolerated - BP has been a little elevated since . Increased her labetalol 400mg BID to 600mg BID starting this AM. Will continue to monitor BP. - After discharge will have 6 week follow-up with Dr. Benavidez. Supervising Physician Co-Signing Physician Notes Patient seen with resident and agree with the above findings and plan. Labile blood pressures noted with occasional mild range. Patient brought over to labor and delivery last night for blood pressure monitoring. Blood pressures in mild range on L&D. Increase dosing of labetalol from 400 mg twice daily to 600 mg twice daily. We will continue to monitor. Patient is denying any preeclampsia symptoms. Preeclampsia labs normal. Coding Level of Care Code None Diagnoses Chronic hypertension affecting O10.919 state Z39.2 S/P section Z98.891
--- NOTE | 2023-06-10 10:53 | Operative Report ---
PG Post Operative Report Pre & Post Diagnosis Operation Date: 05/13/23 11:35 Pre-Op Diagnosis: Breech Presentation, Chronic Hypertension Affectin Post-Op Diagnosis: Breech Presentation, Chronic Hypertension Affectin I identified the patient and participated in the time-out.: Yes Procedure Operation Date: 05/13/23 11:35 Actual Procedures Attempted external cephalic version Surgeon Jovany Bustillo MD Press Secretary Dr. Bustillo Estimated Blood Loss 0 Findings Consistent with Post-Op Diagnosis Specimens None Description of Procedure Attempted external cephalic version for persistent breech presentation performed. Consent forms reviewed and signed prior to the procedure. Attempt at both clockwise and counterclockwise rotation were unsuccessful. Proceeded with section with Dr. Griffin immediately following failed ECV I attest to the content of the Intraoperative Record and any orders documented therein. Any exceptions are noted below.
== END 2023-05-15 12:35 | disposition home or self-care (01) | DRG 786 ==
LOC: 4S1 09:49 → EDSTATUS 11:30 → 4E2 18:55 → 4S1 21:30 → 4E2 23:46